=== PATIENT | female | born 1960 | race Caucasian/White ===

== ENCOUNTER → 2022-08-27 11:39 | Outpatient (BNVA) | payer OTHER, SELFPAY | PROVIDERS: PCP Internal Medicine; Visit Provider Physician Assistant | DX: Z13.89 Encounter for screening for other disorder (principal) ==

== ENCOUNTER 2022-10-09 10:48 | Outpatient (REF) | payer OTHER, SELFPAY ==
--- NOTE | ~2022-10-09 | XR_ITS ---
EXAMINATION: XR LUMBOSACRAL SPINE WITH OBLIQUES CLINICAL INFORMATION: Lumbar back pain. COMPARISON: None available. TECHNIQUE: AP, flexion/extension, and lateral views of the lumbar spine. FINDINGS: There are 5 nonrib-bearing lumbar vertebral bodies. Status post instrumented fusion at L4-L5 with bilateral pedicle screws and interconnecting rods an intervertebral disc spacer. Vertebral body heights are maintained. Moderate intervertebral disc space narrowing at L2-L3 and L3-L4. No significant subluxation with flexion and extension. XR/XR lumbar spine 4V min IMPRESSION: Moderate degenerative disc disease L2-L3 and L3-L4. Status post instrumented fusion L4-L5 with intervertebral disc spacer.
== END 2022-10-09 10:49 | disposition home or self-care (01) ==
LOC: HO.HOSX 10:48
PROVIDERS: Visit Provider Physician Assistant
DX: M51.36 Other intervertebral disc degeneration, lumbar region (principal)
CPT/HCPCS: 72110

== ENCOUNTER → 2022-10-23 13:06 | Outpatient (BNVA) | payer OTHER, SELFPAY | PROVIDERS: PCP Internal Medicine; Visit Provider Physician Assistant ==

== ENCOUNTER 2023-07-27 13:33 | Outpatient (AMB) | payer OTHER, SELFPAY ==
--- NOTE | 2023-07-27 13:33 | MHC.OFFWIV ---
Intake Vital Signs 07/27/23 13:42 Height 5 ft 3 in Weight 196 lb BMI 34.7 BP 140/60 H Blood Pressure Location Lt brachial Position Sitting Pulse 91 Pulse Source Pulse Oximeter Temp 98.4 F Temp Source Temporal Artery Scan Pulse Oximetry (%) 96 Oxygen Delivery Method Room Air Intake Visit Reasons: EP ear ache cough green stuff Intake Note: pt is here today for ear ache coughing up green stuff started Wednesday Patient Tobacco Use Status: Former Tobacco user Allergies amoxicillin Allergy (Intermediate, Verified 07/27/23 13:34) Rash penicillin V Allergy (Intermediate, Verified 07/27/23 13:34) Rash Do you need a note to return to daycare/school/sports/work: Yes HPI HPI Comments History of Present Illness Details Patient is a 63-year-old female in today for a sick visit. Patient states that over the past several days she has developed symptoms of headache, ear pain, cough, chest congestion. 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 She has a past medical history significant for diabetes type 2, hypertension, hyperlipidemia, kidney disease. She denies chest pain, dizziness, shortness of breath, numbness, nausea, vomiting, diarrhea. [facility] Medical History (Updated 07/27/23 @ 14:35 by THERESE Cruz) Diabetes type 2, controlled Social History Patient Tobacco Use Status: Former Tobacco user Review of Systems Const Details: Constitutional : No Weight loss, No Fever, Admits Chills, No Fatigue, No Malaise ENT/Mouth : Admits sore throat, No Rhinorrhea, Admits ear pain. Eyes: No Eye Pain, No Swelling, No Redness Cardiovascular : No Chest Pain, No SOB, No Dyspnea on Exertion, No Orthopnea, No Edema, No Palpitations Respiratory : Admits Cough, No Sputum, No Wheezing Gastrointestinal : No Nausea, No Vomiting, No Diarrhea, No Constipation, No abdominal Pain, No Hematochezia, No Melena Genitourinary : No Dysuria, No Urinary Frequency, No Hematuria, Musculoskeletal : No joint pain, No Myalgias, No Joint Swelling Skin : No Skin Lesions, No rash Neuro : No Weakness, No Numbness, No Dizziness, No Headache Psych : No Anxiety/Panic, No Depression Heme/Lymph: No Bruising, No Bleeding,No Lymphadenopathy Endocrine : No Polyuria, No Polydipsia All other systems reviewed and are negative Physical Exam Vital Signs: Last Vital Signs Temp 98.4 F 07/27/23 13:42 Pulse 91 07/27/23 13:42 BP 140/60 H 07/27/23 13:42 Pulse Ox 96 07/27/23 13:42 Oxygen Delivery Method Room Air 07/27/23 13:42 BMI result Body Mass Index 34.7 Vital signs reviewed stable Const Other: Appearance: Alert.? Oriented X3.? No acute distress.? Head: Normocephalic, atraumatic. Eyes: Pupils equal, round and reactive to light.? ENT: Pharynx cobblestoned, Tonsils +2. TM intact, effusion and erythema bilaterally. Neck: Normal inspection.? Neck supple.? CVS: Normal heart rate and rhythm.? Pulses normal.? Respiratory: No respiratory distress.? Breath sounds normal.? Neuro: Oriented X 3.? No motor deficit.? No sensory deficit. CN 2-12 intact Assessment & Plan Assessment & Plan (1) Bilateral otitis media: Comment: Due to allergies to penicillin, and GI reaction to doxycycline, patient will be given Bactrim for otitis media. She has been instructed on the side effects of this medication. She states that she has taken this antibiotic in the past with good effect. Code(s): H66.93 - Otitis media, unspecified, bilateral Qualifiers: Otitis media type: unspecified Qualified Code(s): H66.93 - Otitis media, unspecified, bilateral Plan: Take your medications as prescribed. If you were prescribed antibiotics today, it is important that you take your medication to their entirety, do not skip any doses, do not finish them early. Follow-up with your primary care provider this week. Return to the emergency department with new or worsening symptoms. Such as fevers, chills, chest pain, shortness of breath, nausea, vomiting, dizziness, headache, vision changes, lethargy In case of emergency call 911 Plan Follow-up with PCP. Will call patient with upper respiratory swab results Orders: Orders SARS-CoV2/FLU/RSV Today J06.9 - Acute upper respiratory infection, unspecified Medications: New sulfamethoxazole-trimethoprim 800-160 mg (Bactrim DS) 1 tab PO Q12H 10 tabs 0RF Coding Level of Care Code Est Pt Level 3 (80122) Diagnoses Bilateral otitis media, unspecified otitis media type H66.93 Otitis media type: unspecified Time Spent (min) 26
[2023-07-27 13:42] VITALS: BP 140/60; PULSE 91; TEMP 36.9; O2SAT 96; BMI 34.7
== END 2023-07-27 15:38 | disposition home or self-care (01) ==
PROVIDERS: PCP Internal Medicine; Visit Provider Nurse Practitioner Primary Care
DX: H66.93 Otitis media, unspecified, bilateral (principal)
CPT/HCPCS: 99213

== ENCOUNTER 2023-07-27 16:31 | Outpatient (REF) | payer OTHER, SELFPAY ==
[2023-07-27 17:38] LABS: Influenza A PCR NEGATIVE (Negative); Influenza B PCR NEGATIVE (Negative); Resp Syncy Virus RNA Qual PCR NEGATIVE (Negative); SARS COV2 PCR INHOUSE NEGATIVE (Negative)
== END 2023-07-27 16:32 | disposition home or self-care (01) ==
LOC: HO.HMGCLNP 16:31
PROVIDERS: Visit Provider Nurse Practitioner Primary Care
DX: Z11.52 Encounter for screening for COVID-19 (principal); Z20.822 Contact with and (suspected) exposure to COVID-19; J06.9 Acute upper respiratory infection, unspecified
CPT/HCPCS: 0241U

== ENCOUNTER 2023-09-28 15:26 | Outpatient (AMB) | payer OTHER, SELFPAY ==
[2023-09-28 15:28] VITALS: BP 132/70; PULSE 80; TEMP 36.6; O2SAT 97; BMI 34.7
--- NOTE | 2023-09-28 15:28 | AM.OFFWIN_ITS ---
Intake Vital Signs 09/28/23 15:28 Height 5 ft 3 in Weight 196 lb BMI 34.7 BP 132/70 Blood Pressure Location Rt brachial Position Sitting Pulse 80 Pulse Source Pulse Oximeter Temp 97.8 F Temp Source Temporal Artery Scan Pulse Oximetry (%) 97 Intake Visit Reasons: EP rash on both wrists Intake Note: patient is here rash on both wrists Patient Tobacco Use Status: Former Tobacco user Allergies amoxicillin Allergy (Intermediate, Verified 09/28/23 15:32) Rash penicillin V Allergy (Intermediate, Verified 09/28/23 15:32) Rash Do you need a note to return to daycare/school/sports/work: No HPI HPI Comments History of Present Illness Details 63-year-old female presents today compla ining a prior pruritic rash that is circumferential around both wrists. She denies any new contacts that she can think of including jewelry sleeping room cleaner new watch band new types of perfume. She has no other rash on the rest of her body REPLACED BY [facility] Medical History (Updated 09/28/23 @ 15:48 by HERNAN Mittal) Diabetes type 2, controlled Social History Patient Tobacco Use Status: Former Tobacco user Review of Systems Const All systems reviewed & are unremarkable except as noted in HPI and below Physical Exam Vital Signs: Last Vital Signs Temp 97.8 F 09/28/23 15:28 Pulse 80 09/28/23 15:28 BP 132/70 09/28/23 15:28 Pulse Ox 97 09/28/23 15:28 BMI result Body Mass Index 34.7 Const General: healthy appearing and no acute distress Skin Rashes: rashes noted (Macular papular rash circumferential both wrists) Assessment & Plan Assessment & Plan (1) Contact dermatitis: Code(s): L25.9 - Unspecified contact dermatitis, unspecified cause Plan: The patient refused prednisone due to being diabetic and wanting to keep her sugars in good control. We discussed topical betamethasone to provide anti- inflammatory effect to the rash. Plan See plan Medications: New betamethasone valerate 0.1% 1 appl topical Q12H PRN 15 grams 0RF rash Coding Level of Care Code Est Pt Level 3 (01420) Diagnoses Contact dermatitis L25.9
== END 2023-09-28 16:52 | disposition home or self-care (01) ==
PROVIDERS: PCP Internal Medicine; Visit Provider Physician Assistant Medical
DX: L25.9 Unspecified contact dermatitis, unspecified cause (principal)
CPT/HCPCS: 99213

== ENCOUNTER 2023-11-26 10:23 | Outpatient (AMB) | payer OTHER, SELFPAY ==
--- NOTE | 2023-11-26 10:41 | AM.OFFWIN_ITS ---
Intake Vital Signs 11/26/23 10:42 Height 5 ft 3 in Weight 195 lb BMI 34.5 BP 132/74 Blood Pressure Location Lt brachial Position Sitting Pulse 84 Pulse Source Pulse Oximeter Temp 97.7 F Temp Source Oral Pulse Oximetry (%) 98 Oxygen Delivery Method Room Air Intake Visit Reasons: EP ?UTI Intake Note: pt is here c/o UTI symptoms, urgency, back pain, burning while urinating. Started yesterday Patient Tobacco Use Status: Former Tobacco user Allergies amoxicillin Allergy (Intermediate, Verified 11/26/23 10:41) Rash penicillin V Allergy (Intermediate, Verified 11/26/23 10:41) Rash Do you need a note to return to daycare/school/sports/work: No HPI HPI Comments History of Present Illness Details 63 y/o female patient who presents to [facility] with c/o urinary frequency, Dsyuria and urgency since yesterday. [facility] Medical History (Updated 09/28/23 @ 15:48 by HERNAN Mittal) Diabetes type 2, controlled Social History Patient Tobacco Use Status: Former Tobacco user Review of Systems Const All systems reviewed & are unremarkable except as noted in HPI and below Physical Exam Vital Signs: Last Vital Signs Temp 97.7 F 11/26/23 10:42 Pulse 84 11/26/23 10:42 BP 132/74 11/26/23 10:42 Pulse Ox 98 11/26/23 10:42 Oxygen Delivery Method Room Air 11/26/23 10:42 BMI result Body Mass Index 34.5 Const General: comfortable and no acute distress Nutritional Appearance: obese Orientation/consciousness: patient oriented x3 General: Yes no CVA tenderness Back/Spine/Pelvis Back: no CVA tenderness Neuro General: patient oriented x3, gait normal and moves all extremities Psych Speech and movement: Normal speech and movement present Results AMB Urinalysis, Automated UA Leukoctes 125 Grzegorz/uL Last Edit by Tristin Telles CMA on 11/26/23 10:58 UA Nitrite Negative Last Edit by Tristin Telles CMA on 11/26/23 10:58 UA Urobilinogen 0.2 mg/dL Last Edit by Tristin Telles CMA on 11/26/23 10:58 UA Protein 0 mg/dL Last Edit by Tristin Telles CMA on 11/26/23 10:58 UA pH 6.0 Last Edit by Tristin Telles CMA on 11/26/23 10:58 UA Blood 0 Ibrahima/uL Last Edit by Tristin Telles CMA on 11/26/23 10:58 UA Specific [place] 1.015 Last Edit by Tristin Telles CMA on 11/26/23 10:58 UA Ketone Negative Last Edit by Tristin Telles CMA on 11/26/23 10:58 UA Bilirubin 0 mg/dL Last Edit by Tristin Telles CMA on 11/26/23 10:58 UA Glucose 0 mg/dL Last Edit by Tristin Telles CMA on 11/26/23 10:58 Results Reviewed Results Reviewed: Laboratory Last Values Urine pH (Auto) 6.0 11/26/23 10:56 Specific [place] (Auto) 1.015 11/26/23 10:56 Urine Protein (Auto) 0 mg/dL 11/26/23 10:56 Glucose (UA)(Auto) 0 mg/dL 11/26/23 10:56 Urine Ketones (Auto) Negative 11/26/23 10:56 Urine Blood (Auto) 0 Ibrahima/uL 11/26/23 10:56 Urine Nitrite (Auto) Negative 11/26/23 10:56 Urine Bilirubin (Auto) 0 mg/dL 11/26/23 10:56 Urine Urobilinogen (Auto) 0.2 mg/dL 11/26/23 10:56 Leukocyte Esterase (Auto) 125 Grzegorz/uL 11/26/23 10:56 Assessment & Plan Assessment & Plan (1) Cystitis: Code(s): N30.90 - Cystitis, unspecified without hematuria Plan: Hydrate with plenty of water Orders: Orders AMB Urinalysis Automated Today Z13.9 - Encounter for screening, unspecified Medications: New sulfamethoxazole-trimethoprim 800-160 mg (Bactrim DS) 1 tab PO BID 3 days 6 tabs 0RF N30.90 - Cystitis, unspecified without hematuria Coding Level of Care Code Est Pt Level 3 (36520) Diagnoses Cystitis N30.90 Time Spent (min) 15
[2023-11-26 10:42] VITALS: BP 132/74; PULSE 84; TEMP 36.5; O2SAT 98; BMI 34.5
== END 2023-11-26 11:19 | disposition home or self-care (01) ==
PROVIDERS: PCP Internal Medicine; Visit Provider Nurse Practitioner Family
DX: N30.90 Cystitis, unspecified without hematuria (principal)
CPT/HCPCS: 81003; 99213

== ENCOUNTER 2024-03-13 09:17 | Emergency (ER) | payer OTHER, SELFPAY ==
--- NOTE | ~2024-03-13 | XR_ITS ---
EXAMINATION: XR HAND/WRIST, RIGHT CLINICAL INFORMATION: Fall on outstretched hand, pain in hand and wrist. COMPARISON: None available. TECHNIQUE: Four views of the right hand and wrist. FINDINGS: Severe diffuse demineralization. Vascular calcifications. Ulnar minus variance. Narrowing of the radiocarpal space. Moderate degenerative changes in the first carpometacarpal joint and triscaphe joint with joint space narrowing and hypertrophic change. Mild degenerative changes at multiple IP joints. There is a markedly comminuted, displaced fracture of the distal left of the third digit with adjacent soft tissue swelling. Fracture appears to extend to the articular surface. XR/XR hand wrist RT IMPRESSION: 1. Markedly comminuted, displaced fracture of the distal left of the third digit with adjacent soft tissue swelling. Fracture appears to extend to the articular surface. 2. Moderate degenerative changes in the first carpometacarpal joint and triscaphe joint. This study was presented today March 13, 2024 for interpretation. Stat results provided at this time as requested by referring provider. Electronically signed by: Clarissa Antunez MD 03/13/2024 12:42 PM EDT RP
[2024-03-13 09:21] VITALS: BP 180/77; PULSE 77; RESP 16; TEMP 36.5; O2SAT 99; BMI 35.5
--- NOTE | 2024-03-13 11:09 | ED_ITS ---
HPI - Extremity Problem General Chief complaint: Extremity Injury, Upper Stated complaint: R hand injury Time Seen by Provider: 03/13/24 11:08 Source: patient Mode of arrival: ambulatory Limitations: no limitations History of Present Illness ED Provider: kevin GIPSON Narrative: Patient is a 63 yo female with PMH DM II, lumbar DDD, here with right wrist pain and swelling s/p fall yesterday. Reports yesterday she had stepped wrongly into a crack and it caused her to fall, she landed on her extended right hand/wrist area. She self wrapped in LONG wrapping and treated with tylenol. States when she woke this am it was swollen and she wanted to double check if anything was broken. Denies numbness or tingling, reports good ROM except some limitation due to inflammation- Is able to wiggle my fingers . Has been using RICE treatment method thus far. Denies head strike, denies loss of consciousness. Denies neck or back pain. Not anticoagulated. MD Complaint: extremity pain and extremity swelling Onset (ago): day(s) Location: right Associated symptoms: denies other symptoms Related Data Home Medications ?Medication ?Instructions ?Recorded ?Confirmed atorvastatin 20 mg tablet 20 mg PO DAILY 02/20/22 diltiazem HCl 180 mg 180 mg PO DAILY 02/20/22 capsule,extended release 24 hr furosemide 20 mg tablet 20 mg PO DAILY 02/20/22 hydralazine 50 mg tablet 50 mg PO BID 02/20/22 insulin lispro 100 unit/mL See Rx Instructions subcut 02/20/22 subcutaneous pen (Humalog KwikPen USEASDIRECTD (U-100) Insulin) levothyroxine 75 mcg tablet See Rx Instructions PO DAILY 02/20/22 nystatin-triamcinolone 100,000 1 appl topical TID 02/20/22 unit/gram-0.1 % topical ointment olmesartan 40 mg tablet 40 mg PO DAILY 02/20/22 Previous Rx's ?Medication ?Instructions ?Recorded betamethasone valerate 0.1 % 1 appl topical Q12H PRN rash #15 09/28/23 topical cream grams sulfamethoxazole 800 1 tab PO BID 3 days #6 tabs 11/26/23 mg-trimethoprim 160 mg tablet (Bactrim DS) Allergies Allergy/AdvReac Type Severity Reaction Status Date / Time amoxicillin Allergy Intermediate Rash Verified 03/13/24 09:24 penicillin V Allergy Intermediate Rash Verified 03/13/24 09:24 Review of Systems Review of Systems: As per HPI Yes all other systems are reviewed and are negative Constitutional: Constitutional: Reports as per HPI PENDING SALE TO [facility] Past Medical History Medical History (Updated 03/13/24 @ 13:13 by Zully Wasserman NP) Diabetes type 2, controlled Social History Social History Patient Tobacco Use Status: Former Tobacco user Smoked in Last 30 Days: No Advance Directives: No Advance Directives Information Provided: Yes Do you have a plan to hurt others: No Plan Physical Exam Vital Signs: Vital Signs: Last Vital Signs Temp 97.7 F 03/13/24 09:21 Pulse 77 03/13/24 09:21 Resp 16 03/13/24 09:21 BP 180/77 H 03/13/24 09:21 Pulse Ox 99 03/13/24 09:21 O2 Del Method Room Air 03/13/24 09:21 BMI result Body Mass Index 35.5 Const: General: cooperative, healthy appearing and no acute distress Orientation/consciousness: oriented to person, oriented to place, oriented to time and patient oriented x3 Limitations: no limitations HEENT: Head: Yes normocephalic and Yes atraumatic Ears: external ears normal General nose exam: Normal external nose present Face and sinus: Yes face symmetric Mouth: oropharynx normal and moist mucous membranes Throat: Yes uvula midline Eyes: Pupils: Equal, round and reactive pupils present Neck: Neck: Yes normal visual inspection and Yes supple Resp: Effort & Inspection: normal respiratory effort and able to speak in complete sentences Auscultation: clear to auscultation bilaterally Cardio: Rate: regular rate Rhythm: regular rhythm Heart sounds: S1 normal heart sound present and S2 normal heart sound present GI: Palpation (GI): Soft to palpation and nontender Auscultation: normoactive bowel sounds : General: Yes no CVA tenderness Back/Spine/Pelvis: Back: no CVA tenderness Skin: General skin exam: elasticity normal and turgor normal Trauma: no lacerations or abrasions Neuro: General: oriented to person, oriented to place, oriented to time, patient oriented x3, moves all extremities, no focal motor deficits and CN's II- XI intact bilaterally Cranial nerves: Yes Equal, round and reactive pupils present Cognition (Neuro): normal cognition Extrem: General: Yes full ROM, Yes no pedal edema and Yes no calf tenderness Right upper extremity: normal capillary refill, edema and wrist Left upper extremity: normal to inspection, full ROM, normal capillary refill and hand Details: normal capillary refill, neuromotor exam normal, neurosensory exam normal, tendon exam normal, normal ROM of fingers and swelling Location: of the dorsal hand, of the 2nd digit, of the 3rd digit, of the 4th digit and of the 5th digit Psych: Mental Status: mental status grossly normal Affect: normal affect Thought process: Normal thought process present Medical Decision Making Medical Decision Making MDM Narrative: Patient is a 63 yo female with PMH DM II, lumbar DDD, here with right wrist pain and swelling s/p fall yesterday. On exam patient is awake, A+Ox3, VS WNL, afebrile, normal neurological exam without focal deficits, physical exam findings as above. Given reported symptoms and physical exam findings, initial differential includes fracture, nerve injury, muscle or tendon strain, arthritis. X-ray notable for comminuted, displaced fracture of distal right 3rd digit. My interpretation is in agreement with the radiologist's interpretation. Patient has normal flexion of all fingers. Placed in finger splint, will refer to ortho for follow up, normal capillary refill distal prior to and after application of splint. Advised ice, tylenol/ibuprofen, no lifting with affected hand. Return precautions discussed. Patient verbalized understanding of and agreement with plan. Differential Diagnosis Differential Diagnoses: The differential diagnosis associated with the presentation includes fracture, nerve injury, muscle or tendon strain, arthritis Independent Interpretation I performed an independent interpretation of an: Plain X-Ray Interpretation: X-ray notable for comminuted, displaced fracture of distal right 3rd digit. Radiology Impression Discussion of test interpretation with radiology: I have reviewed the radiologist's reading. Radiologist Impression: XR/XR hand wrist RT IMPRESSION: 1. Markedly comminuted, displaced fracture of the distal left of the third digit with adjacent soft tissue swelling. Fracture appears to extend to the articular surface. 2. Moderate degenerative changes in the first carpometacarpal joint and triscaphe joint. This study was presented today March 13, 2024 for interpretation. Stat results provided at this time as requested by referring provider. External Record Review External record reviewed: Inpatient record, Office record and Outpatient record Procedures Orthopedic Splinting/Casting Injury #1: Side: right Upper Extremity Injury Location: finger Upper Extremity Immobilizer: finger (other) and Long wrap Discharge Plan Discharge Clinical Impression: Finger fracture, right Patient Disposition: Home, Self-Care Instructions: Finger Fracture (ED) Additional Instructions: You have been evaluated in the emergency department today for hand pain. Your evaluation showed a fracture of your right 3rd (middle) finger. We have placed your finger in a splint today, avoid getting the splint wet. Please rest, ice, and elevate your hand to help it heal. Use use Tylenol or ibuprofen per package directions every 6 hours as needed for pain. If necessary, you can alternate these medications and take one medication every 3 hours. For instance, at noon take ibuprofen, then at 3:00 p.m. take Tylenol, then at 6:00 p.m. take ibuprofen. Please follow-up with the orthopedic office within 1 week. Return to the emergency department if you experience worsening pain, numbness, tingling, change of color in your fingers/hand, or any other concerning symptoms. Prescriptions: No Action atorvastatin 20 mg tablet 20 mg PO DAILY hydralazine 50 mg tablet 50 mg PO BID olmesartan 40 mg tablet 40 mg PO DAILY levothyroxine 75 mcg tablet See Rx Instructions PO DAILY Rx Instructions: 6 days per week orally daily; diltiazem HCl 180 mg capsule,extended release 24hr 180 mg PO DAILY furosemide 20 mg tablet 20 mg PO DAILY nystatin-triamcinolone 100,000-0.1 unit/gram-% ointment 1 appl topical TID insulin lispro [Humalog KwikPen Insulin] 100 unit/mL insulin pen See Rx Instructions subcut USEASDIRECTD Rx Instructions: sliding scale before meals subcutaneously use as directed; betamethasone valerate 0.1 % cream 1 appl topical Q12H PRN (Reason: rash) Qty: 15 0RF sulfamethoxazole-trimethoprim [Bactrim DS] 800-160 mg tablet 1 tab PO BID 3 Days Qty: 6 0RF Referrals: Tiffanie Choudhury MD [Physician] - 1 week ( XR/XR hand wrist RT IMPRESSION: 1. Markedly comminuted, displaced fracture of the distal left of the third digit with adjacent soft tissue swelling. Fracture appears to extend to the articular surface. 2. Moderate degenerative changes in the first carpometacarpal joint and triscaphe joint.) Stand Alone Forms: Work/School Release Print Language: Grenadian
[2024-03-13 13:41] VITALS: BP 180/77; PULSE 77; RESP 16; TEMP 36.5; O2SAT 99
== END 2024-03-13 13:41 | disposition home or self-care (01) ==
PROVIDERS: Emergency Provider Emergency Medicine; PCP Internal Medicine
DX: S62.632A Displaced fracture of distal phalanx of right middle finger, initial encounter for closed fracture (principal); W19.XXXA Unspecified fall, initial encounter; Y93.9 Activity, unspecified; Y92.9 Unspecified place or not applicable; Y99.9 Unspecified external cause status; M79.641 Pain in right hand
CPT/HCPCS: 73110; 73130; 99283; 99284

== ENCOUNTER 2024-03-14 10:48 | Outpatient (AMB) | payer OTHER, SELFPAY ==
--- NOTE | 2024-03-14 11:03 | A.OFFVIS_ITS ---
Intake Visit Reasons: FC- Finger fracture, right Intake Note: Deana is a 63 year old left hand dominant female who presents to the office today for a FC visit for a right hand middle finger fracture. Pt states on 03/12/24 she tripped and braced herself with her hands when she fell. Pt states she has minimal pain. Pt states she isn't able to really move her finger but states if she bumps her finger that is when she gets the pain. Pt states she has had trigger finger surgeries in the past but doesn't believe it was that finger. Pt was placed in a finger splint and has been wearing it since the ER visit. Allergies amoxicillin Allergy (Intermediate, Verified 03/14/24 11:03) Rash penicillin V Allergy (Intermediate, Verified 03/14/24 11:03) Rash HPI HPI FC- Finger fracture, right: Details: The patient is a 63-year-old woman who fell onto her outstretched right hand on 03/12/2024 sustaining an injury to her right middle finger. She says it is not very painful now, and hurts less when she moves it. [facility] Medical History (Updated 03/16/24 @ 15:51 by Tiffanie Choudhury MD) Diabetes type 2, controlled Social History Patient Tobacco Use Status: Former Tobacco user Physical Exam Const General: cooperative, healthy appearing and no acute distress Orientation/consciousness: oriented to person and oriented to place HEENT Head: Yes normocephalic and Yes atraumatic Eyes EOM: EOMs intact bilaterally Resp Effort & Inspection: normal respiratory effort and able to speak in complete sentences Cardio Jugular venous distension: no JVD Skin General skin exam: turgor normal Rashes: no rashes Neuro General: oriented to person and oriented to place Extrem Other: Evaluation of right Upper Extremity: Neuro: Median, ulnar, radial nerves motor and sensory intact. Vascular: Cap refill brisk. ROM: Can bring fingers closed to a fist and back out to full or nearly full extension. Smooth and painless right wrist ROM Mild swelling and some resolving ecchymosis of the distal aspect of the right middle finger. Mild tenderness over the D IP joint and distal phalanx of the right middle finger. The fracture fragment is only slightly palpable on the volar aspect of the middle finger just distal to the D IP flexion crease. She has good alignment of the distal phalanx in the D IP joint with only a minimal extensor lag. She is unable to actively flex at the D IP joint, limited by pain. After work on range of motion exercises for the MCP and PIP joints she was then able to actively take the MCP and PIP joints through full range of motion. Mildly decreased sensation to the tip of the middle finger. No lacerations or evidence of open injury. Radiographs: Radiographs three views of the right hand taken on 03/14/2024 were reviewed by me in clinic. They show to fractures of the right middle finger distal phalanx. One is a transverse fracture through the body that is minimally displaced. The 2nd is a fracture off of the volar cortex of the base of the distal phalanx at the FDP attachment. This is displaced away from the body of the distal phalanx but is not significantly displaced proximally. Fracture fragment is certainly sitting distal to the A4 arlen. Psych Appearance: grossly normal Affect: normal affect Attitude: cooperative Office Procedures AMB Fracture Care Details: Distal phalanx fracture care Fracture Billing Code: Fracture Billing Code Assessment & Plan Assessment & Plan (1) Fracture of distal phalanx of right middle finger: Code(s): S62.632A - Displaced fracture of distal phalanx of right middle finger, initial encounter for closed fracture Category: Medical Plan Assessment and plan: 1. Right middle finger transverse fracture through the distal phalanx body, non displaced 2. Right middle finger distal phalanx F flexor digitorum longus insertion avulsion fracture, from the volar base With displacement Fragment kept distal to the A4 arlen I educated the patient about this injury We did discuss operative and non operative treatment options including operative fixation of both the distal phalanx body fracture and the fracture fragment that served as the insertion for the FDP tendon. She was interested in non operative treatment if possible. She actually has very good range of motion of the other digits end of the MCP and PIP joints. The transverse body fracture is not displaced at this time and has satisfactory clinical alignment. I did explain to her that she likely would not have much if any flexion at the D IP joint if we did not fix it. However I also advised her that often times who will perform an arthrodesis of this joint whereby people then have no active flexion at this joint and they do well. Weighing all of this, she felt that she wanted to pursue non operative treatment. This is not unreasonable. We fitted her with a volar aluminum splint to support the D IP joint in the distal phalanx but allow for PIP motion. She will wear this most of the time but may remove it for showering. She is going to continue to work on MCP and PIP joint motion. We will see her back in about a month to see how she is doing, with pre clinic radiographs. Orders: Orders XR hand RT min 3V 03/14/24 M79.641 - Pain in right hand Coding Level of Care Code New Pt Level 3 (11832) Diagnoses Fracture of distal phalanx of right middle finger S62.632A CPT Codes Fracture Care - Fracture Billing Code: Fracture Billing Code ([id number])
== END 2024-03-14 12:24 | disposition home or self-care (01) ==
PROVIDERS: PCP Internal Medicine; Visit Provider Orthopaedic Surgery
DX: S62.632A Displaced fracture of distal phalanx of right middle finger, initial encounter for closed fracture (principal); W19.XXXA Unspecified fall, initial encounter
CPT/HCPCS: 99203

== ENCOUNTER 2024-03-14 12:32 | Outpatient (REF) | payer OTHER, SELFPAY | END 2024-03-14 12:33 | disposition home or self-care (01) | LOC: HO.HOSX 12:32 | DX: M79.641 Pain in right hand (principal) | CPT/HCPCS: 73130 ==

== ENCOUNTER 2024-04-11 10:42 | Outpatient (REF) | payer OTHER, SELFPAY | END 2024-04-11 10:43 | disposition home or self-care (01) | LOC: HO.HOSX 10:42 | DX: M79.641 Pain in right hand (principal) | CPT/HCPCS: 73130 ==

== ENCOUNTER 2024-04-11 10:49 | Outpatient (AMB) | payer OTHER, SELFPAY ==
--- NOTE | 2024-04-11 11:13 | MHC.OFFVIS ---
Vital Signs 04/11/24 11:15 Height 5 ft 3 in Weight 200 lb BMI 35.4 Handedness Left Intake Visit Reasons: FC- Finger fracture, right w/ xray Intake Note: Deana is a 63 year old left hand dominant female who presents today as a new patient for a fracture care visit of her right middle finger fracture s/p fall DOI: 03/12/2024. Patient reports she stepped into a crack on the ground the wrong way which caused her to fall. She fell with both her hands in front of her in attempt to stop her fall. She reports she has numbness in her right middle finger and her ring finger feels a bit swollen still however she says the ring finger is feeling better. She is unable to make a full closed fist since the injury and reports soreness when she tries. She feels the pain has not been strong enough to need ibuprofen or Tylenol. Allergies amoxicillin Allergy (Intermediate, Verified 04/11/24 11:16) Rash penicillin V Allergy (Intermediate, Verified 04/11/24 11:16) Rash HPI HPI FC- Finger fracture, right w/ xray: Details: Patient is a 63-year-old female who presents for follow-up evaluation status post right middle finger distal phalanx fracture status post fall, date of injury 03/12/2024. Today, the patient reports that she is feeling very well, and is experiencing no pain in the right middle finger at this time. However, the patient does state she is continuing to experience limited range of motion in the DIP joint of the right middle finger, but states that she knew that this was a risk when she was previously evaluated by Dr. Choudhury. The patient does state that she remains wholly uninterested in any surgical intervention. Patient states that she has not been wearing the splint much over the last 2 weeks. The patient does report that she does have some numbness in the distal aspect of the right middle finger, but has normal sensation at this time and in all other digits of the right hand. No other acute complaints or concerns at this time. [facility] Medical History (Updated 03/16/24 @ 15:51 by Tiffanie Choudhury MD) Diabetes type 2, controlled Social History (Updated 04/11/24 @ 11:16 by HARVEY Bañuelos) Patient Tobacco Use Status: Former Tobacco user Current occupational status: employed Current occupation: left handed/ Business Service Rep @ [employer] Review of Systems Const All systems reviewed & are unremarkable except as noted in HPI and below Physical Exam Vital Signs: BMI result Body Mass Index 35.4 Const General: cooperative, healthy appearing and no acute distress Orientation/consciousness: oriented to person and oriented to place HEENT Head: Yes normocephalic and Yes atraumatic Eyes EOM: EOMs intact bilaterally Resp Effort & Inspection: normal respiratory effort and able to speak in complete sentences Cardio Jugular venous distension: no JVD Skin General skin exam: turgor normal Rashes: no rashes Neuro General: oriented to person and oriented to place Extrem Other: Evaluation of right Upper Extremity: Neuro: Median, ulnar, radial nerves motor and sensory intact. Vascular: Cap refill brisk. ROM: Can bring fingers closed to a fist and back out to full or nearly full extension. Smooth and painless right wrist ROM Mild swelling and some resolving ecchymosis of the distal aspect of the right middle finger. No tenderness over the D IP joint and distal phalanx of the right middle finger. The fracture fragment is only slightly palpable on the volar aspect of the middle finger just distal to the D IP flexion crease. She has good alignment of the distal phalanx in the D IP joint with only a minimal extensor lag. She is able to minimally actively flex at the DIP joint of the right middle finger, but states that this is no longer due to pain After work on range of motion exercises for the MCP and PIP joints she was then able to actively take the MCP and PIP joints through full range of motion. Mildly decreased sensation to the tip of the middle finger. No lacerations or evidence of open injury. Psych Appearance: grossly normal Affect: normal affect Attitude: cooperative Results Reviewed Results Reviewed: X-rays obtained in the office today and independently reviewed by me, Dean Bucio PA-C, demonstrate displaced, comminuted fracture of the base of the distal phalanx of the right middle finger. Largely unchanged from previous x-rays. Assessment & Plan Assessment & Plan (1) Fracture of distal phalanx of right middle finger: Code(s): S62.632A - Displaced fracture of distal phalanx of right middle finger, initial encounter for closed fracture Category: Medical Plan Assessment and plan: 1. Right middle finger transverse fracture through the distal phalanx body, non displaced 2. Right middle finger distal phalanx F flexor digitorum longus insertion avulsion fracture, from the volar base With displacement Fragment kept distal to the A4 arlen I educated the patient about this injury Patient states that she is still holding uninterested in any potential surgical intervention at this time Patient states that she is completely pain-free, but that she does notice that she has reduced range of motion Patient is educated that this may never come back due to the location of her fracture, and if it does it may be in a limited capacity Patient states understanding of this Patient is educated that she should continue to wear the splint with daytime activities, but should remove the splint while at home to work on range of motion, as well as for bathing and sleeping. Patient is amenable to this plan Patient will follow-up in 4-6 weeks with repeat x-rays for reassessment, sooner with any acute concerns Orders: Orders XR hand RT min 3V Today M79.641 - Pain in right hand Coding Level of Care Code Global (13394) Diagnoses Fracture of distal phalanx of right middle finger S62.632A
[2024-04-11 11:15] VITALS: BMI 35.4
== END 2024-04-11 11:37 | disposition home or self-care (01) ==
PROVIDERS: PCP Internal Medicine
DX: S62.632A Displaced fracture of distal phalanx of right middle finger, initial encounter for closed fracture (principal)
CPT/HCPCS: 99213

== ENCOUNTER 2024-05-26 08:12 | Outpatient (REF) | payer OTHER, SELFPAY ==
--- NOTE | ~2024-05-26 | XR_ITS ---
EXAMINATION: XR HAND 3 OR MORE VIEWS RIGHT HISTORY: M79.641 - Pain in right hand COMPARISON: Comparison is made with the prior examination dated 04/11/2024. FINDINGS: Three views of the right hand are submitted. The bones are osteopenic. Again seen is a comminuted intra-articular fracture of the base of the distal phalanx of the middle finger. Position and alignment of the fracture fragments are unchanged. There is mild narrowing of the DIP joints. The soft tissues are unremarkable. XR/XR hand RT min 3V IMPRESSION: Comminuted intra-articular fracture of the base of the distal phalanx of the 3rd finger without significant change. Electronically signed by: Sam Griffin MD 05/31/2024 10:36 AM OSKAR
== END 2024-05-26 08:13 | disposition home or self-care (01) ==
LOC: HO.HOSX 08:12
DX: M79.641 Pain in right hand (principal)
CPT/HCPCS: 73130

== ENCOUNTER 2024-05-26 09:59 | Outpatient (AMB) | payer OTHER, SELFPAY ==
--- NOTE | 2024-05-26 10:09 | A.OFFVIS_ITS ---
Intake Visit Reasons: OV: FX of right 3rd digit DOI: 03/12/24 Intake Note: Deana is a 63 year old left hand dominant female who presents today for a follow up visit of her fracture of distal phalanx of right middle finger s/p fall DOI: 03/12/2024. Patient reports no pain today. She mentions that she is still having some numbness since the injury. Allergies amoxicillin Allergy (Intermediate, Verified 05/26/24 10:12) Rash penicillin V Allergy (Intermediate, Verified 05/26/24 10:12) Rash HPI HPI OV: FX of right 3rd digit DOI: 03/12/24: Details: Patient is a 64-year-old female who presents for follow-up evaluation of fracture of the distal phalanx of the right middle finger, date of injury 03/12/2024. Today, the patient reports that she does not experience any pain in the right hand, but she still does notice a limited ability to flex at the DIP joint and some tingling in the right hand. Patient once again states she is completely uninterested in any operative intervention at this time. No other acute complaints or concerns at this time. [facility] Medical History (Updated 03/16/24 @ 15:51 by Tiffanie Choudhury MD) Diabetes type 2, controlled Social History (Updated 04/11/24 @ 11:16 by HARVEY Bañuelos) Patient Tobacco Use Status: Former Tobacco user Current occupational status: employed Current occupation: left handed/ Business Service Rep @ [employer] Review of Systems Const All systems reviewed & are unremarkable except as noted in HPI and below Physical Exam Const General: cooperative, healthy appearing and no acute distress Orientation/consciousness: oriented to person and oriented to place HEENT Head: Yes normocephalic and Yes atraumatic Eyes EOM: EOMs intact bilaterally Resp Effort & Inspection: normal respiratory effort and able to speak in complete sentences Cardio Jugular venous distension: no JVD Skin General skin exam: turgor normal Rashes: no rashes Neuro General: oriented to person and oriented to place Extrem Other: Evaluation of right Upper Extremity: Neuro: Median, ulnar, radial nerves motor and sensory intact. Vascular: Cap refill brisk. ROM: Can bring fingers closed to a fist and back out to full or nearly full extension. Smooth and painless right wrist ROM No swelling or ecchymosis of the distal aspect of the right middle finger. No tenderness over the D IP joint and distal phalanx of the right middle finger. She has good alignment of the distal phalanx in the D IP joint with only a minimal extensor lag. She is able to flex to approximately 30-40 degrees at the DIP joint of the right middle finger, but states that this is no longer due to pain After work on range of motion exercises for the MCP and PIP joints she was then able to actively take the MCP and PIP joints through full range of motion. Mildly decreased sensation to the tip of the middle finger. No lacerations or evidence of open injury. Psych Appearance: grossly normal Affect: normal affect Attitude: cooperative Results Reviewed Results Reviewed: X-rays obtained in the office today and independently reviewed by me, Dean Bucio PA-C, demonstrate displaced, comminuted fracture of the base of the distal phalanx of the right middle finger. Injury to volar distal phalanx of right middle finger appears to be progressing towards nonunion. Assessment & Plan Assessment & Plan (1) Fracture of distal phalanx of right middle finger: Code(s): S62.632A - Displaced fracture of distal phalanx of right middle finger, initial encounter for closed fracture Category: Medical Plan 1. Fracture of distal phalanx of right middle finger Date of injury 03/12/2024 Patient appears to be recovering fairly well from her injury Patient is educated about the typical recovery course At this time, patient was informed that it is looking like her fracture may progress to a nonunion, but given the fact that she has no pain in her remains entirely uninterested in any surgical intervention, there is nothing further to do at this time Patient expresses that the tingling in slightly diminished sensation in the right middle finger does not bother her enough to the point where she feels there is any further intervention indicated, and she would like to wait and see if this heals over time Patient will follow-up as needed with any acute concerns Orders: Orders XR hand RT min 3V Today M79.641 - Pain in right hand Coding Level of Care Code Est Pt Level 3 (03737) Diagnoses Fracture of distal phalanx of right middle finger S62.632A
== END 2024-05-26 10:24 | disposition home or self-care (01) ==
PROVIDERS: PCP Internal Medicine
DX: S62.632A Displaced fracture of distal phalanx of right middle finger, initial encounter for closed fracture (principal)
CPT/HCPCS: 99213

== ENCOUNTER → 2024-05-26 10:03 | Outpatient (BNV) | payer OTHER, SELFPAY | PROVIDERS: Visit Provider Radiology Diagnostic Radiology | DX: S62.632D Displaced fracture of distal phalanx of right middle finger, subsequent encounter for fracture with routine healing (principal) | CPT/HCPCS: 73130 ==

== ENCOUNTER 2024-11-15 10:14 | Outpatient (REF) | payer OTHER, SELFPAY ==
--- NOTE | ~2024-11-15 | XR_ITS ---
EXAMINATION: XR CHEST 2 VIEWS HISTORY: R05.9 - Cough, unspecified COMPARISON: There are no prior studies available for comparison. FINDINGS: PA and lateral views of the chest are submitted. There is linear subsegmental atelectasis versus scarring in the left lower lobe. The lungs are otherwise clear. There is no pleural effusion, pneumothorax, or pulmonary vascular congestion. The heart is normal in size. There is mild degenerative disc disease of the spine. XR/XR chest 2V IMPRESSION: Linear subsegmental atelectasis versus scarring in the left lower lobe. Electronically signed by: Sam Griffin MD 11/15/2024 12:14 PM EDT
== END 2024-11-15 10:15 | disposition home or self-care (01) ==
LOC: HO.HMGCX 10:14
PROVIDERS: PCP Internal Medicine; Visit Provider Physician Assistant
DX: J22 Unspecified acute lower respiratory infection (principal)
CPT/HCPCS: 71046

== ENCOUNTER 2024-11-15 10:14 | Outpatient (AMB) | payer OTHER, SELFPAY ==
[2024-11-15 10:28] VITALS: BP 134/52; PULSE 78; TEMP 36.8; O2SAT 97; BMI 36.5
--- NOTE | 2024-11-15 10:28 | AM.OFFWIN_ITS ---
Intake Vital Signs 11/15/24 10:28 Height 5 ft 3 in Weight 206 lb 2 oz BMI 36.5 BP 134/52 L Blood Pressure Location Rt brachial Position Sitting Pulse 78 Temp 98.2 F Temp Source Oral Pulse Oximetry (%) 97 Oxygen Delivery Method Room Air Intake Visit Reasons: EP congestion, cough Patient Tobacco Use Status: Former Tobacco user Allergies amoxicillin Allergy (Intermediate, Verified 11/15/24 10:33) Rash penicillin V Allergy (Intermediate, Verified 11/15/24 10:33) Rash Do you need a note to return to daycare/school/sports/work: Yes HPI HPI Comments History of Present Illness Details History - The patient is a 64-year-old female pr esenting with a lingering cough and congestion. - The cough began with a scratchy throat last week, following her 's illness. - The cough is occasionally productive a nd is accompanied by nasal congestion and rhinorrhea. - She experiences shortness of breath wi th exertion and a sensation of wheezing. - There is no history of fever, and her has recovered from a similar illness after 3 days. - She reports ear pressure but denies si gnificant ear pain. - She has a history of sinus infections and experiences occasional headaches. - She has been managing symptoms with co ugh syrup, saltwater gargles, lemon, robbie - She has not used nasal sprays and has no diagnosed history of asthma or COPD. - She quit smoking 36 years ago after sm oking for approximately 15 years. - She has diabetes mellitus and kidney issues . Physical Exam General: Cooperative, healthy appearing, comfortable and no acute distress Orientation/consciousness: Patient oriented x3 Limitations: No limitations Head: Normal to inspection Ears: Hearing grossly normal bilaterally, external ears normal and TM's normal bilaterally Nose: Normal external nose present, Normal nares present and nasal discharge present Face and sinus: Normal facial exam and Yes sinuses nontender Mouth: Normal oral and palatal mucosa present and moist mucous membranes Throat: Yes tonsils normal, Yes uvula midline. Posterior oropharynx erythema, no exudates Eyes: Appearance normal, both eyes and all related structures Neck: Normal visual inspection, full ROM Respiratory: Clear to auscultation on left, rhonchi in RUL and RLL. Normal respiratory effort, able to speak in complete sentences, no respiratory distress, not tachypneic, no tripod positioning and no use of accessory muscles Cardiovascular: Regular rate and rhythm. 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 Review of Systems Const All systems reviewed & are unremarkable except as noted in HPI and below Physical Exam Vital Signs: Last Vital Signs Temp 98.2 F 11/15/24 10:28 Pulse 78 11/15/24 10:28 BP 134/52 L 11/15/24 10:28 Pulse Ox 97 11/15/24 10:28 Oxygen Delivery Method Room Air 11/15/24 10:28 BMI result Body Mass Index 36.5 Assessment & Plan Assessment & Plan (1) Lower respiratory infection (e.g., bronchitis, pneumonia, pneumonitis, pulmonitis): Code(s): J22 - Unspecified acute lower respiratory infection Plan: - VSS, pt well appearing and PE remarkable for right sided rhonchi. - A chest x-ray is ordered to rule out pneumonia due to abnormal lung sounds. - A prescription for a Z-Wally is provided to address potential bacterial infection. - An inhaler with a spacer is prescribed to alleviate shortness of breath and wheezing. - The patient is advised to use a decongestant and increase fluid intake to manage congestion. - The patient is advised to rest and is provided with a work excuse for today and possibly tomorrow. Patient was informed and verbally consented to the use of an ambient scribe for clinic note documentation during this visit Orders: Orders XR chest 2V Today R05.9 - Cough, unspecified Medications: New albuterol sulfate 90 mcg/actuation 2 puffs inhalation Q6H PRN 8.5 grams 0RF shortness of breath or wheezing or cough inhalational spacing device (BreatheRite MDI Spacer) As directed 1 ea 0RF azithromycin For 250 mg dose pack: take 500 mg today (day 1), then 250 mg for 4 days (days 2-5) PO 6 tabs 0RF Coding Level of Care Code New Pt Level 4 (39195) Diagnoses Lower respiratory infection (e.g., bronchitis, pneumonia, pneumonitis, pulmonitis) J22
--- OUTSIDE RECORDS SUMMARY | 2024-11-15 11:52 | XMS_ITS | Clinical Summary ---
Author Organization [facility] [address] [place] [address] [place] [phone] Phone Care Team Providers Care Rn Cvor Name Role Phone Asa Bro MD Primary Care Provider [phone] Allergies Active Allergy Reactions Criticality Noted Date Comments Amoxicillin Trihydrate 03/25/2005 Rash, does not recall if itchy More than ten years ago Penicillin G Potassium 03/25/2005 Medications cetirizine (ZyrTEC) 10 mg tablet Take by mouth. - Oral Active dilTIAZem CD (CARDIZEM CD) 180 mg 24 hr capsule Take 1 Capsule by mouth daily. 10/29/19 21 Active estradioL (ESTRACE) 0.01 % (0.1 mg/gram) vaginal cream Apply 0.5 g nightly for two weeks, then MWF 12/09/19 24 Active hydrALAZINE (APRESOLINE) 50 mg tablet Take 1 tablet (50 mg total) by mouth 4 (four) times a day. Per Spotter 04/12/20 23 Active spironolactone (ALDACTONE) 25 mg tablet Take 1 Tablet by mouth every morning. 03/09/20 22 Active blood sugar diagnostic (Contour Next Test Strips) test stripIndications :Type 1 diabetes mellitus without complications (CMS/HCC V24, CMS/HCC V28) USE TO TEST BLOOD SUGAR 5 TIMES DAILY. 450 strip 1 06/06/19 25 Active Lantus Solostar U-100 Insulin 100 unit/mL (3 mL) injection pen INJECT SUBCUTANEOUSLY 26 UNITS DAILY 30 mL 3 06/07/19 25 Active HumaLOG KwikPen Insulin 100 unit/mL injection pen INJECT SUBCUTANEOUSLY 3 TIMES DAILY WITH MEALS PER SCALE:125-150:2 U,151-200:4 U,201-250:6 U,251-300:8 U,301-350:10 U,351-400:12 U 45 mL 3 07/07/19 25 Active levothyroxine (SYNTHROID, LEVOTHROID) 75 mcg tablet Take 1 tablet (75 mcg total) by mouth 1 (one) time each day. 90 tablet 2 08/15/19 25 Active olmesartan (BENICAR) 40 mg tablet Take 1 tablet (40 mg total) by mouth 1 (one) time each day. at bedtime. 90 tablet 2 08/15/19 25 Active atorvastatin (LIPITOR) 20 mg tablet Take 1 tablet (20 mg total) by mouth 1 (one) time each day. 90 tablet 2 08/15/19 25 Active furosemide (LASIX) 20 mg tablet Take 1 tablet (20 mg total) by mouth 1 (one) time each day. 90 tablet 2 08/15/19 25 Active BD Ultra-Fine Fidelina Pen Needle 32 gauge x 5/32 needle INJECT SUBCUTANEOUSLY 5 TIMES DAILY 450 each 09/26/19 25 Active nystatin-triamci nolone (MYCOLOG II) ointment APPLY A THIN LAYER TO AFFECTED AREA wtice weekly 30 g 2 10/27/19 25 Active nystatin-triamci nolone (MYCOLOG II) ointment APPLY A THIN LAYER TO AFFECTED AREA NIGHTLY 11/28/19 21 025 Discontin ued(Reord er) Active Problems Problem Noted Date Diagnosed Date Recurrent UTI 12/09/2023 Lichen sclerosus 11/27/2020 Assessment & Plan (10/26/2024 11:11 AM EDT): Reviewed findings with patient. Well controlled. I reviewed the importance of regular maintenance topical steroid use and the importance of regular follow. I reviewed areas of application and amount of medication to use. Yearly exam. Perennial allergic rhinitis 07/30/2020 Tibia/fibula fracture 08/07/2019 Overview (03/17/2024): Right ankle and knee 07/13 Severe obesity (BMI 35.0-39. 9) with comorbidity (CMS/HCC V24, [facility] [place]28) 06/22/2019 Diabetic retinopathy ([facility] V24, [facility] V28) 06/02/2016 Type 1 diabetes mellitus wit h cataract ([facility] V24, [facility] V28) 06/02/2016 CKD stage 2 due to type 1 di abetes mellitus ([facility] V24, [facility] V28) 05/26/2016 Hyperlipidemia 12/31/2015 Ankle fracture, left 02/21/2015 Overview (03/17/2024): 11/23/2014 Microalbuminuria 07/29/2012 Type I (juvenile type) diabe alexander mellitus with renal manifestations, uncontrolled(250.43) ([facility] V24, [facility] V28) 07/29/2012 Overview (03/17/2024): Onset age 4 Essential hypertension, benign 03/25/2005 Cataract 03/25/2005 Hypothyroidism 03/25/2005 Encounters Date Type Department Care Team Description 10/26/2024 11:45 AM EDT Office Visit Obstetrics and Gynecology - [address] [phone] Caron Sellers MD Lichen sclerosus (Primary Dx) 08/25/2024 9:45 AM EDT Office Visit Endocrinology - [address] [phone] Trinity Sutherland MD Screening for osteoporosis (Primary Dx) from Last 3 Months Immunizations Name Administration Dates Next Due Influenza Quadravalent, MDCK , 0.5ml, preservative free (Flucelvax) 6mo and older 03/21/2018 Influenza Quadravalent, MDCK , 0.5ml, with preservative (Flucelvax) 6mo and older 04/05/2017 Influenza trivalent, 0.5mL, preservative free (Fluarix; FluLaval; Fluzone) ages 6mo and older (Afluria) 3 years and older 04/01/2021,03/09/2019,04/08/2016,04/01,03/27/2014,02/28/2013,03/30/2012 ,03/03/2011,03/19/2010,02/07/2008,11/2006,04/26/2006 Influenza trivalent, with pr eservative (Fluzone; Afluria) 6mo and older 03/25/2005 Moderna (age 6mo & older) Bi valent, COVID-19, 0.5 mL or 0.25 mL dosage 06/19/2023 Moderna SARS-CoV-2 COVID-19, mRNA, LNP-S, preservative free 06/01/2021,06/14/2020 Pneumococcal polysaccharide 23 valent (Pneumovax 23) 2yo and older 03/01/2001 Td Tetanus diptheria (Tdvax) 7yo and older 01/28/2020,04/23/1997 Tdap Tetanus diptheria acell ular pertussis (Boostrix; Adacel) 7yo and older 03/19/2009 Surgical History Surgery Date Site/Laterality Comments SECTION : x2 CATARACT EXTRACTION bilateral HAND SURGERY trigger thumbs TUBAL LIGATION 1989 APPENDECTOMY 2018 Medical History Medical History Date Comments Essential hypertension, benign 03/25/2005 Bilateral cataracts 09/12/2008 : removed Hyperlipidemia 12/31/2015 Microalbuminuria 07/29/2012 Type 1 diabetes, uncontrolle d, with renal manifestation 07/29/2012 : Onset age 4 Type 1 diabetes mellitus wit h eye manifestations ([facility] V24, [facility] V28) 06/02/2016 Type 1 diabetes mellitus wit h cataract ([facility] V24, [facility] V28) 06/02/2016 Tibia/fibula fracture 08/07/2019 : Right an kle and knee 07/13 Hypothyroidism 03/25/2005 Perennial allergic rhinitis 07/30/2020 Recurrent UTI 12/09/2023 Family History Medical History Relation Name Comments Breast cancer Aunt 1 maternal [place] Breast cancer Aunt 2 paternal Diabetes Brother x 1 Diabetes Father type 2, HTN, ar thritis; lung disease Heart attack Maternal Grandfather COPD Maternal Grandmother Asthma Mother Diabetes Mother CABG (age 73); COPD, cataract, IBS Diabetes Sister x 3 Colon cancer Neg Hx Ovarian cancer Neg Hx Uterine cancer Neg Hx Relation Name Status Comments Aunt 1 maternal Alive Aunt 2 paternal Alive Brother x 1 Alive Father Maternal Grandfather Maternal Grandmother Mother Paternal Grandfather Paternal Grandmother Sister x 3 Alive Social History Tobacco Use Types Packs/Day Years Used Date Smoking Tobacco: Former Cigarettes Smokeless Tobacco: Never Tobacco Cessation:Counseling Given: Not Answered Alcohol Use Standard Drinks/Week Comments Yes 1 (1 standard drink = 0.6 oz pur e alcohol) Housing Instability Answer Date Recorde d Are you worried that in the next 2 months you may not have stable housing? No 08/11/2024 Food Access & Nutrition Answer Date Rec orded Do you have access to a vari ety of food including fruits and vegetables? Yes 08/11/2024 Access to Healthcare Answer Date Record ed Within the last 3 months, ho w many times did you visit the emergency department for your medical care? 0 08/11/2024 Health Literacy Answer Date Recorded How often do you need to hav e someone help you when you read instructions, pamphlets, or other written material from your doctor or pharmacy? Rarely 08/11/2024 Caregiver: How often do you need to have someone help you when you read instructions, pamphlets, or other written material from your doctor or pharmacy? Not on file 08/11/2024 Financial Risk Answer Date Recorded How hard is it for you to pa y for the very basics like food, housing, medical care, and air conditioning / heating? Not very hard 08/11/2024 Transportation Answer Date Recorded Has the lack of transportati on kept you from meetings, work, or from getting things needed for daily living? No Has the lack of transportati on kept you from medical appointments or from getting medications? No 08/11/2024 Social Isolation Answer Date Recorded How often do you feel lonely or isolated from th ose around you? Rarely 08/11/2024 Food Risk Answer Date Recorded Within the past 12 months we worried whether our food would run out before we got money to buy more. Never true 08/11/2024 Within the past 12 months th e food we bought just didn't last and we didn't have money to get more. Never true 08/11/2024 Dependent Care Answer Date Recorded Do you need help finding or paying for care for your loved ones. For example, child welfare worker or elderly care for an older adult? No 08/11/2024 Education Answer Date Recorded Do you think completing more education or training, like finishing a GED, going to college, or learning a trade, would be helpful for you? No 08/11/2024 Employment and Income Answer Date Recor ded During the last four weeks, have you been actively looking for work? Yes 08/11/2024 Living Situation Answer Date Recorded What is your living situation? 0 08/11/2024 Comments No Sex and Gender Information Value Date Recorded Sex Assigned at Female 03/15/2024 1:38 PM EDT Legal Sex Female 3:27 AM EST Gender Identity Female 03/15/2024 1:38 PM EDT Sexual Orientation Not on file Obstetrics History Para Term AB IAB SAB Ectopic Multiple Livin g Live Births 2 2 2 2 2 Date Outcome GA Total Labor Labor/2nd/3rd Weight Sex Type Anes PTL Roseanna A1 A5 Name Clin Term Living Term Living Last Filed Vital Signs Vital Sign Reading Time Taken Comments Blood Pressure 148/47 10/26/2024 9:47 AM EDT Pulse 83 10/26/2024 9:47 AM EDT Temperature 36 C (96.8 F) 08/25/2024 9:53 AM EDT Respiratory Rate 17 08/14/2024 2:56 PM EDT Oxygen Saturation 98% 08/25/2024 9:53 AM EDT Inhaled Oxygen Concentration - - Weight 95.7 kg (211 lb) 08/25/2024 9:53 AM EDT Height 160 cm (5' 3 ) 08/25/2024 9:53 AM EDT Body Mass Index 37.38 08/25/2024 9:53 AM EDT Plan of Treatment Upcoming Encounters Date Type Department Care Team (Late st Contact Info) Description 02/22/2025 3:45 PM EDT Office Visit Adult Medicine [address] [phone] Asa Bro MD [address] [place] [address] 02/26/2025 9:30 AM EDT Office Visit Endocrinology [address] [phone] Trinity Sutherland MD [address] [place] [id number] 03/14/2025 9:00 AM EDT Appointment Radiology Department - [place] [address] [place], [place] [address] [phone] 03/14/2025 10:00 AM EDT Appointment Bone Density - [place] [address] [place] [address] Health Maintenance Due Date Last Done Comments Zoster Vaccines (1 of 2) 1978 Pneumococcal Vaccine: 50+ Years (2 of 2 - PCV) 03/01/2002 03/01/2001 Pneumococcal Vaccine: Pediatrics (0 to 5 Years) and At-Risk Patients (6 to 64 Years) (2 of 2 - PCV) 03/01/2002 03/01/2001 RSV Immunization Adult Patients (1 - Risk 60-74 years 1-dose series) 2019 Colorectal Cancer Screening: Stool Based Tests (FOBT/FIT) 10/23/2019 Osteoporosis Screening (Bone Density Screening) 10/23/2019 COVID-19 Vaccine ( season) 2024 06/19/2023, 06/01/2021, 11/28/2020, Additional history exists Diabetes: Annual Foot Exam 07/07/2024 07/07/2023 Diabetes: Annual Urine Albumin-Creatinine Ratio (uACR) 11/01/2024 11/02/2023 Influenza Vaccine (Season Ended) 2025 04/01/2021, 03/09/2019, 03/21/2018, Additional history exists Breast Cancer Screening 02/13/2025 02/14/20 23, 01/04/2021, 07/08/2018, Additional history exists Diabetes: Blood Sugar Control Test (HGBA1C) 02/16/2025 08/16/2024, 11/02/2023, 11/02/2023 Diabetes: Annual GFR (Glomerular Filtration Rate) 07/03/2025 07/03/2024, 07/03/2024, 07/03/2024, Additional history exists Hypertension/CHF/CAD Annual BMP Blood Test 07/03/2025 07/03/2024, 07/03/2024, 07/03/2024, Additional history exists Depression Screening 08/11/2025 08/11/2024 Social Influencers of Health Screening 08/11/2025 08/11/2024 Falls Risk Assessment 08/14/2025 08/14/2024 Diabetes: Annual Retina Eye Exam 10/18/2025 10/18/2024, 03/30/2024, 03/07/2024 Cervical Cancer Screening: HPV 11/28/2026 11/28/2021 Cholesterol Screening (Lipid Panel) 08/16/2029 08/16/2024, 02/14/2024, 02/14/2024 DTaP,Tdap,and Td Vaccines (4 - Td or Tdap) 01/27/2030 01/28/2020, 03/19/2009, 04/23/1997 Hepatitis C Screening Completed 05/03/2013 HIB Vaccines Aged Out No longer eligi ble based on patient's age to complete this topic HPV Vaccines Aged Out No longer eligi ble based on patient's age to complete this topic Hepatitis A Vaccines Aged Out No long er eligible based on patient's age to complete this topic Hepatitis B Vaccines Aged Out No long er eligible based on patient's age to complete this topic IPV Vaccines Aged Out No longer eligi ble based on patient's age to complete this topic MMR Vaccines Aged Out No longer eligi ble based on patient's age to complete this topic Meningococcal ACWY Vaccine Aged Out N o longer eligible based on patient's age to complete this topic Meningococcal B Vaccine Aged Out No l onger eligible based on patient's age to complete this topic RSV Immunization Patients Under 20 months Aged Out No longer eligible based on patient's age to complete this topic Varicella Vaccines Aged Out No longer eligible based on patient's age to complete this topic Procedures Procedure Name Priority Date/Time Associated Diagnosis Comments EXTERNAL DIABETIC RETINA EYE EXAM 10/18/2024 LIPID PANEL WITH REFLEX TO DIRECT LDL Routine 08/16/2024 4:48 PM EDT Pure hypercholesterolemia HEMOGLOBIN A1C Routine 08/16/2024 4:48 PM EDT Type I (juvenile type) diabetes mellitus with renal manifestations, uncontrolled(250.43) (CMS/[facility] V24, CMS/[facility] V28) THYROID STIMULATING HORMONE WITH REFLEX TO FREE T4 AND FREE T3 Routine 08/16/2024 4:48 PM EDT Hypothyroidism, unspecified type COMPREHENSIVE METABOLIC PANEL Routine 07/03/2024 11:25 AM EST Chronic kidney disease (CKD) stage G3b/A1, moderately decreased glomerular filtration rate (GFR) between 30-44 mL/min/1.73 square meter and albuminuria creatinine ratio les* (CMS/HCC V24, CMS/HCC V28) Severely overweight Localized edema Hyposmolality syndrome Primary hypertension Diabetes mellitus ([facility]/HCC V24, [facility] V28) URINE ALBUMIN CREATININE RATIO Routine 11/02/2023 DIABETES FOOT EXAM Routine 07/07/2023 SCREENING MAMMOGRAPHY BI 2-VIEW BREAST INC CAD Routine 02/13/2023 10:49 AM EDT Encounter for screening mammogram for malignant neoplasm of breast HPV Routine 11/28/2021 HEPATITIS C SCREENING Routine 05/03/2013 from Last 3 Months or Most Recently Relevant to Health Maintenance Results * External Diabetic Retina Eye Exam Report (10/18/2024) Anatomical Region Laterality Modality Ultrasound us Provider [facility] US PROCEDURES Final Result * Thyroid stimulating hormone with reflex to free t4 and free t3 (08/16/2024 4:48 PM EDT) TSH 1.60 0.40 - 4.00 mcIU/mL LAB CHEMISTRY METHOD 08/16/2024 9:13 PM EDT [facility] Blood Venous blood specimen / Unknown Venipuncture / Unknown 08/16/2024 4:48 PM EDT 08/16/2024 4:48 PM EDT us Asa Bro MD LAB BLOOD ORDERABLES Final Resu lt [facility] [address] [place] [address], [place] [phone] * Lipid panel with reflex to direct LDL (08/16/2024 4:48 PM EDT) Cholesterol 158 0 - 200 mg/dL LAB CHEMISTRY METHOD 08/16/2024 7:36 PM EDT [facility] Triglycerides 87 0 - 150 mg/dL LAB CHEMISTRY METHOD 08/16/2024 7:36 PM EDT [facility] HDL 89 >=40 mg/dL LAB CHEMISTRY METHOD 08/16/2024 7:36 PM EDT [facility] LDL Calculated 52 0 - 100 mg/dL LAB CHEMISTRY METHOD 08/16/2024 7:36 PM EDT [facility] VLDL Cholesterol Pascual 17.4 mg/dL LAB CHEMISTRY METHOD 08/16/2024 7:36 PM EDT [facility] Non HDL Chol. (LDL+VLDL) 69 <145 mg/dL LAB CHEMISTRY METHOD 08/16/2024 7:36 PM EDT [facility] Chol/HDL Ratio 1.8 0.0 - 4.4 LAB CHEMISTRY METHOD 08/16/2024 7:36 PM EDT [facility] Blood Venous blood specimen / Unknown Venipuncture / Unknown 08/16/2024 4:48 PM EDT 08/16/2024 4:48 PM EDT us Asa Bro MD LAB BLOOD ORDERABLES Final Resu lt [facility] [address] [place] [address], [place] [phone] * (ABNORMAL) Hemoglobin A1c (08/16/2024 4:48 PM EDT) Hemoglobin A1C 7.0(H) <6.5 % LAB CHEMISTRY METHOD 08/17/2024 1:56 PM EDT [facility] Mean Bld Glu Estim. 154 mg/dL LAB CHEMISTRY METHOD 08/17/2024 1:56 PM EDT [facility] Blood Venous blood specimen / Unknown Venipuncture / Unknown 08/16/2024 4:48 PM EDT 08/16/2024 4:48 PM EDT us Asa Bro MD LAB BLOOD ORDERABLES Final Resu lt [facility] [address] [place] [address], [place] [phone] * (ABNORMAL) Comprehensive metabolic panel (07/03/2024 11:25 AM EST) Sodium 138 133 - 145 mmol/L LAB CHEMISTRY METHOD 07/03/2024 4:[address] [facility] Potassium 4.9 3.5 - 5.5 mmol/L LAB CHEMISTRY METHOD 07/03/2024 4:[address] [facility] Chloride 107 96 - 110 mmol/L LAB CHEMISTRY METHOD 07/03/2024 4:[address] [facility] CO2 22 21 - 32 mmol/L LAB CHEMISTRY METHOD 07/03/2024 4:[address] [facility] Anion Gap 9 3 - 11 LAB CHEMISTRY METHOD 07/03/2024 4:[address] [facility] Glucose 185(H) 70 - 100 mg/dL LAB CHEMISTRY METHOD 07/03/2024 4:[address] [facility] BUN 32(H) 5 - 25 mg/dL LAB CHEMISTRY METHOD 07/03/2024 4:[address] [facility] Creatinine 1.62(H) 0.50 - 1.10 mg/dL LAB CHEMISTRY METHOD 07/03/2024 4:[address] [facility] eGFR 35(L) >=60 mL/min/1. 73m2 LAB CHEMISTRY METHOD 07/03/2024 4:[address] [facility] Comment:Calculation based on the Chronic Kidney Disease Epidemiology Collaboration (CKD-EPI) equation refit without adjustment for race. BUN/Creatinine Ratio 19.8 LAB CHEMISTRY METHOD 07/03/2024 4:[address] [facility] Calcium 9.9 8.5 - 10.5 mg/dL LAB CHEMISTRY METHOD 07/03/2024 4:[address] [facility] AST (SGOT) 12 10 - 42 unit/L LAB CHEMISTRY METHOD 07/03/2024 4:[address] [facility] ALT (SGPT) 20 10 - 60 unit/L LAB CHEMISTRY METHOD 07/03/2024 4:[address] [facility] Alkaline Phosphatase 133(H) 42 - 121 unit/L LAB CHEMISTRY METHOD 07/03/2024 4:[address] [facility] Total Protein 7.1 6.0 - 8.0 g/dL LAB CHEMISTRY METHOD 07/03/2024 4:[address] [facility] Albumin 4.2 3.2 - 5.0 g/dL LAB CHEMISTRY METHOD 07/03/2024 4:[address] [facility] Total Bilirubin 1.0 0.0 - 1.4 mg/dL LAB CHEMISTRY METHOD 07/03/2024 4:[address] [facility] Blood Venous blood specimen / Unknown Venipuncture / Unknown 07/03/2024 11:25 AM EST 07/03/2024 11:25 AM EST us Pito Mccormack MD LAB BLOOD ORDERABLES Final Result [facility] [address] [place] [address], [place] [phone] * Urine Albumin Creatinine Ratio (11/02/2023) Urine Albumin Creatinine Ratio Abstracted us Historical Provider HEALTH MAINTENANCE Final Result * Diabetes Foot Exam (07/07/2023) Pathologist [facility] Diabetes: Annual Foot Exam Abstracted Historical Provider HEALTH MAINTENANCE Final Result * SCREENING MAMMOGRAPHY BI 2-VIEW BREAST INC CAD (02/13/2023 10:49 AM EDT) Anatomical Region Laterality Modality Radiographic Sarah ging 01/04/2021 11:4 1 AM EDT Narrative 02/15/2023 4:32 PM EDT This is a summary report. The complete report is available in the patient's medical record. If you cannot access the medical record, please contact the sending organization for a detailed fax or copy. Exam: Screening mammogram Findings: Digital bilateral full-field screening mammography is performed with tomosynthesis and interpreted with the aid of computer-aided detection. Comparison is made with 01/04/2021 and 07/08/2018. Breast parenchyma is composed of scattered fibroglandular densities. No new suspicious mass, architectural distortion, or suspicious calcifications. Impression: No mammographic evidence of malignancy. BI-RADS 1 - negative Procedure Note Judy Moctezuma MD - 06/28/2023 This is a summary report. The complete report is available in thepatient's medical record. If you cannot access the medical record, pleasecontact the sending organization for a detailed fax or copy. Exam: Screening mammogram Findings: Digital bilateral full-field screening mammography is performedwith tomosynthesis and interpreted with the aid of computer-aideddetection. Comparison is made with 01/04/2021 and 07/08/2018. Breast parenchyma is composed of scattered fibroglandular densities. Nonew suspicious mass, architectural distortion, or suspiciouscalcifications. Impression: No mammographic evidence of malignancy. BI-RADS 1 - negative Asa Bro MD IMG XR PROCEDURES Final Result * Cervical Cancer Screening: HPV (11/28/2021) Pathologist [facility] Cervical Cancer Screening: HPV Negative, Abstracted Historical Provider HEALTH MAINTENANCE Final Result * Hepatitis C Screening (05/03/2013) Pathologist [facility] Hepatitis C Screening Abstracted us Historical Provider HEALTH MAINTENANCE Final Result from Last 3 Months or Most Recently Relevant to Health Maintenance Insurance [employer] D[employer] Care Teams Rn Cvor Relationship Specialty Start Date End Date Asa Bro MD [address] [place] [id number] PCP - General Internal Medicine 03/15/20
== END 2024-11-15 11:23 | disposition home or self-care (01) ==
PROVIDERS: PCP Internal Medicine; Visit Provider Physician Assistant
DX: J22 Unspecified acute lower respiratory infection (principal)

== ENCOUNTER → 2024-11-15 11:14 | Outpatient (BNV) | payer OTHER, SELFPAY | PROVIDERS: PCP Internal Medicine; Visit Provider Radiology Diagnostic Radiology | DX: J98.11 Atelectasis (principal) | CPT/HCPCS: 71046 ==

== ENCOUNTER 2025-03-02 15:12 | Outpatient (REF) | payer OTHER, SELFPAY ==
[2025-03-02 15:35] LABS: MANUAL DIFF FLAG NO
[2025-03-02 15:53] LABS: Hematocrit 34.5 % (37.0-47.0); Hemoglobin 10.9 g/dl (12.0-16.0); Imm Gran Abs Auto 0.02 X10*3/uL (0.00-0.03); Imm Gran Pct Auto 0.2 % (0.0-0.4); Lymphocytes Absolute Auto 0.7 X10*3/uL (1.2-4.9); Mean Corpuscular HGB Conc 31.6 g/dl (31.0-35.0); Mean Corpuscular Hemoglobin 28.8 pg (27.0-33.0); Mean Corpuscular Volume 91.3 fL (80.0-98.0); NRBC Abs Auto 0.000 X10*3/uL (0.0-0.012); NRBC Pct Auto 0.0 /100WBC (0.0-0.2); Platelet Count 254 X10*3/uL (160-400); Red Blood Count 3.78 X10*6/uL (4.20-5.50); White Blood Count 8.4 X10*3/uL (4.8-10.8)
[2025-03-02 16:01] LABS: Hemoglobin A1C 144.1651 umol/L
[2025-03-02 16:30] LABS: Alanine Aminotransferase 15 U/L (0-31); Albumin Level 4.4 g/dL (3.5-5.0); Anion Gap 14 (12-20); Aspartate Amino Transferase 30 U/L (5-31); Blood Urea Nitrogen 65 mg/dL (9-16); Calcium 9.5 mg/dL (8.4-10.2); Carbon Dioxide 23 mmol/L (22-29); Chloride 109 mmol/L (96-108); Cholesterol 126 mg/dL (<200); Estimated Glomerular Filt Rate 30; HDL Cholesterol 60 mg/dL (>40); Potassium 5.8 mmol/L (3.3-5.1); Sodium 140 mmol/L (135-145); Total Protein 7.2 g/dL (6.5-8.0); Triglycerides 126 mg/dL (<150)
[2025-03-02 16:33] LABS: Magnesium 2.1 mg/dL (1.6-2.6); Uric Acid 9.9 mg/dL (2.4-5.7)
[2025-03-02 16:38] LABS: Parathyroid Hormone Intact 119.3 pg/mL (8.7-77.1)
[2025-03-02 16:52] LABS: Alkaline Phosphatase 134 U/L (39-117)
[2025-03-02 19:20] LABS: Total Protein Urine Random < 7 mg/dL (<12)
== END 2025-03-02 15:13 | disposition home or self-care (01) ==
LOC: HO.LAB 15:12
PROVIDERS: Absent Provider Internal Medicine Nephrology; PCP Internal Medicine; Visit Provider Internal Medicine
DX: I12.9 Hypertensive chronic kidney disease with stage 1 through stage 4 chronic kidney disease, or unspecified chronic kidney disease (principal); E10.22 Type 1 diabetes mellitus with diabetic chronic kidney disease; N18.2 Chronic kidney disease, stage 2 (mild); E10.65 Type 1 diabetes mellitus with hyperglycemia; E03.9 Hypothyroidism, unspecified; E78.00 Pure hypercholesterolemia, unspecified; E87.1 Hypo-osmolality and hyponatremia; E87.5 Hyperkalemia; R80.9 Proteinuria, unspecified; Z79.899 Other long term (current) drug therapy
CPT/HCPCS: 36415; 80053; 80061; 82043; 82306; 82570; 83036; 83735; 83970; 84100; 84156; 84443; 84481; 84550; 85025

== ENCOUNTER 2025-04-12 15:53 | Outpatient (AMB) | payer OTHER, SELFPAY ==
--- NOTE | 2025-04-12 15:55 | MHC.PC.OV ---
Vital Signs 04/12/25 15:59 Height 5 ft 2 in Weight 204 lb BMI 37.3 BP 134/48 L Blood Pressure Location Lt brachial Position Sitting Respiration 18 Pulse 78 Pulse Source Pulse Oximeter Temp 98.1 F Temp Source Temporal Artery Scan Pulse Oximetry (%) 96 Oxygen Delivery Method Room Air Intake Visit Reasons: Establish Care/ New Patient - see comments Blueprint Duplicator Required: No Accompanied by: Self / Same As Patient Allergies amoxicillin Allergy (Intermediate, Verified 04/12/25 15:55) Rash penicillin V Allergy (Intermediate, Verified 04/12/25 15:55) Rash Tobacco use date assessed: 04/12/25 Last assessed Fall Risk: 04/12/25 Dental Screening Dental Screen Date: 04/12/25 Did you have a dental visit in the last 12 months?: Yes Did you have a dental problem in the last 6 months where you did not have access to dental care?: No Was dental information given to patient?: Patient has dentist HPI HPI Comments History of Present Illness Details History of Present Illness The patient is a 64 year old individual presenting to establish primary care after the patient's previous providers at [facility] left the practice. The patient has a history of diabetes, managed with insulin glargine 26 units daily and a sliding scale for short-acting insulin. The patient's A1c was 6.8% on 03/02, and care is being transferred to Dr. Garza in endocrinology. For hypercholesterolemia, the patient takes atorvastatin, and recent blood work showed an LDL of 41. Hypertension is managed with a multi-drug regimen including diltiazem 180 mg once daily, hydralazine three times daily, spironolactone 25 mg once daily, and olmesartan 40 mg. The patient has stage 4 chronic kidney disease and is managed by a private courier driver, Dr. Lopez, whom the patient intends to continue seeing. Associated hyperkalemia is treated with sodium zirconium (Lokelma) once a week. Hypothyroidism is treated with levothyroxine 75 mcg daily, with a recent stable TSH of 1.07. This was previously managed by Dr. Bro and will now be managed by either the new PCP or the ground helper street railway. Past medical history includes an episode of bronchitis, for which an albuterol inhaler was prescribed but is no longer used. The patient had eye surgery in May of this year, followed by an episode of eye soreness, redness, and swelling in December, for which one injection was administered. The patient's surgical history includes a back fusion in 2022, two C-sections, and an appendectomy around 2014. The patient has a strong family history of diabetes affecting the patient's mother, father, and siblings, and a maternal history of heart disease. The patient is a former smoker, having quit 37 years ago, and consumes alcohol occasionally. There is a reported allergy to amoxicillin/penicillin from a long time ago, which has not been retested. Medical History: - Diabetes Mellitus - Hypertension - Hypercholesterolemia - Chronic Kidney Disease, Stage 4 - Hypothyroidism - Hyperkalemia - Anemia of Chronic Disease - History of bronchitis - History of eye swelling, status post-injection - Penicillin allergy, reported Surgical History: - Back fusion (2022) - sections () - Appendectomy (approx. 2014) - Eye surgery (May of this year) Medications: - Albuterol inhaler for a past episode of bronchitis, not currently in use. - Atorvastatin 20 mg for hypercholesterolemia. - Insulin glargine (Lantus) 26 units daily for diabetes. - Short-acting insulin via sliding scale for diabetes. - Diltiazem 180 mg once daily for hypertension. - Hydralazine three times per day (one in the morning, one in the afternoon, two at night) for hypertension. - Spironolactone 25 mg once daily for hypertension. - Olmesartan 40 mg for hypertension. - Levothyroxine 75 mcg once a day for hypothyroidism. - Sodium zirconium (Lokelma) once a week for hyperkalemia. Family History: - Diabetes: Positive for mother, father, and siblings. - Heart Disease: Positive for mother. - Cancer: Denied. Diagnostic Results: - Labs (from 03/02): - LDL cholesterol: 41 - Hemoglobin A1c: 6.8% - TSH: 1.07 - Hemoglobin: 10 - Potassium: Elevated (value not specified) Social History - Tobacco Use: Former smoker, quit 37 years ago. - Alcohol Use: Reports occasional use, consuming a glass of wine about once a month. - Illicit Drug Use: Denies use of marijuana and cocaine. 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 1. Little interest or pleasure in doing things: not at all 2. Feeling down, depressed, or hopeless: not at all 3. Trouble falling or staying asleep, or sleeping too much: not at all 4. Feeling tired or having little energy: not at all 5. Poor appetite or overeating: not at all 6. Feeling bad about yourself - or that you are a failure or have let yourself or your family down: not at all 7. Trouble concentrating on things, such as reading the newspaper or watching television: not at all 8. Moving or speaking so slowly that other people could have noticed. Or the opposite - being so fidgety or restless that you have been moving around a lot more than usual: not at all 9. Thoughts that you would be better off or of hurting yourself in some way: not at all Total score: 0 Depression Screening Interpretation: Negative Depression Screening Done: Yes 53794 - PHQ-9 Billing: Yes Source: Developed by Drs. Sam Woodward, Ruth Juarez, Rusty Giang and colleagues, with an educational margaret from [employer]. Thrive Questionnaire Date Thrive assessed: 04/12/25 I am a: Patient What is your living situation today?: I have a steady place to live Within the past 12 months, did the food you bought not last and you didn't have the money to get more?: Never true Within the past 12 months, did you worry whether your food would run out before you got money to buy more?: Never true Do you have trouble paying for medicines?: No Do you have trouble getting transportation to medical appointments?: No Do you have trouble paying your heating and electricity bill?: No Do you have trouble taking care of your child, family member or friend?: No Do you have trouble with day-to-day activities such as bathing, preparing meals, shopping, managing finances, etc.?: No Are you currently unemployed and looking for a job?: No Are you interested in more education?: No THRIVE Score: 0 AUDIT C Alcohol Use Questionnaire (AUDIT-C) 1. How often do you have a drink containing alcohol?: Monthly or less 2. How many drinks containing alcohol do you have on a typical day when you are drinking?: 1 or 2 Total Score: 1 Score Reviewed/Action Taken: Yes CHINYERE-7 AMB Questionnaire CHINYERE-7 Date CHINYERE - 7 assessed: 04/12/25 Feeling nervous, anxious, or on edge: 0 = Not at all Not being able to stop or control worryin = Not at all Worrying too much about different things: 0 = Not at all Trouble relaxin = Not at all Being so restless that it is hard to sit still: 0 = Not at all Becoming easily annoyed or irritable: 0 = Not at all Feeling afraid as if something awful might happen: 0 = Not at all Total CHINYERE-7 score (0-4 normal; 5-9 mild; 10-14 moderate; 15-21 severe): 0 Source: Developed by Drs. Sam Woodward, Ruth Juarez, Rusty Giang and colleagues, with an educational margaret from [employer]. CHINYERE-7 Assessment Billing CHINYERE-7 Assessment Tool: CHINYERE-7 Assessment 65785 Review of Systems Narrative Review of Systems - Constitutional: Denies nausea and vomiting. - Eyes: Reports history of eye soreness, redness, and swelling. - Cardiovascular: Denies chest pain. - Respiratory: Denies shortness of breath. - Gastrointestinal: Reports normal bowel movements. - Genitourinary: Reports normal urination. All systems reviewed & are unremarkable except as reviewed in HPI and above Physical exam (Primary Care) Vital Signs: Last Vital Signs Temp 98.1 F 04/12/25 15:59 Pulse 78 04/12/25 15:59 Resp 18 04/12/25 15:59 BP 134/48 L 04/12/25 15:59 Pulse Ox 96 04/12/25 15:59 Oxygen Delivery Method Room Air 04/12/25 15:59 BMI result Body Mass Index 37.3 Tobacco/Smoking Status: Tobacco use Status Tobacco use date assessed 04/12/25 04/12/25 15:58 Patient Tobacco Use Status Former Tobacco user 04/12/25 15:58 Tobacco use type Cigarette 04/12/25 16:09 e-Cigarette/Vaping Use Never Used 04/12/25 16:09 PHQ-9: PHQ-9 Score PHQ-9: Total score 0 04/12/25 16:20 Depression Screening Interpretation: Negative Thrive Assessment: Date of Thrive Assessment Date Thrive assessed 04/12/25 04/12/25 16:03 Narrative Physical Exam General: +Alert and oriented, Well nourished, No acute distress. Eye: Pupils are equal, round and reactive to light, Intact accommodation, Extraocular movements are intact, Normal conjunctiva, Vision unchanged. Swelling behind eyes noted, history of eye surgery in May, and injection in December for soreness and redness. HENT: Normocephalic, Atraumatic, Tympanic membranes are clear, Normal hearing, Oral mucosa is moist, No pharyngeal erythema, Ear canals patent. Respiratory: Lungs CTA bilaterally, No wheeze, Respirations are non-labored. Cardiovascular: Regular rate, Regular rhythm, S1 auscultated, S2 auscultated, No murmur, Good pulses equal in all extremities, Normal peripheral perfusion, No edema. Gastrointestinal: Soft, Non-tender, Non-distended, Normal bowel sounds, No organomegaly. Musculoskeletal: Normal range of motion, Normal strength, No tenderness, No swelling, No deformity, Normal gait. Integumentary: Warm, Dry, [place], Intact. Neurologic: Alert, Oriented, Normal sensory, Normal motor function, No focal defects, Cranial Nerves II-XII are grossly intact, Normal deep tendon reflexes. Psychiatric: Cooperative, Appropriate mood & affect, Normal judgment. Coding Level of Care Code New Pt Level 4 (63696) New Pt Prev Care >65yr (15504) Diagnoses Primary hypertension I10 Type 2 diabetes mellitus with stage 4 chronic kidney disease, with long-term current use of insulin E11.22; N18.4; Z79.4 Chronic kidney disease stage: stage 4 (GFR 15-29) Diabetes mellitus complication detail: with chronic kidney disease Diabetes mellitus complication status: with kidney complications Diabetes mellitus [facility] insulin use: with [facility] use Diabetes mellitus type: type 2 CKD (chronic kidney disease) stage 4, GFR 15-29 ml/min N18.4 Hyperlipidemia, unspecified hyperlipidemia type E78.5 Hyperlipidemia type: unspecified Other specified hypothyroidism E03.8 Hypothyroidism type: other Anemia in stage 4 chronic kidney disease N18.4; D63.1 Chronic kidney disease stage: stage 4 (GFR 15-29) Annual physical exam Z00.00 Additional Codes CHINYERE-7 Assessment Billing - CHINYERE-7 Assessment Tool: CHINYERE-7 Assessment [id number] ([id number]) PHQ-9 - 65693 - PHQ-9 Billing: Yes ([id number]) Comment [id number] Assessment & Plan Assessment & Plan (1) Primary hypertension: Comment: - The patient is on a multidrug regimen, and blood pressure is noted to be well-controlled. - There is a concern about using spironolactone in the context of hyperkalemia, as it could be contributing to the issue. - The patient was advised to discuss this with the courier driver. - No medication changes were made. Code(s): I10 - Essential (primary) hypertension Category: Medical (2) Diabetes: Comment: - The condition is stable, with a recent A1c of 6.8%. - The patient will continue the current insulin regimen and will be managed by the ground helper street railway, Dr. Garza. Code(s): E11.9 - Type 2 diabetes mellitus without complications Category: Medical Qualifiers: Chronic kidney disease stage: stage 4 (GFR 15-29) Diabetes mellitus complication detail: with chronic kidney disease Diabetes mellitus complication status: with kidney complications Diabetes mellitus intermodal dispatcher insulin use: with [facility] use Diabetes mellitus type: type 2 Qualified Code(s): E11.22 - Type 2 diabetes mellitus with diabetic chronic kidney disease; N18.4 - Chronic kidney disease, stage 4 (severe); Z79.4 - senior living (current) use of insulin (3) CKD (chronic kidney disease) stage 4, GFR 15-29 ml/min: Comment: - Management will continue under the care of the patient's private courier driver. Code(s): N18.4 - Chronic kidney disease, stage 4 (severe) Category: Medical (4) Hyperlipidemia: Comment: - The condition is well-controlled with atorvastatin, as indicated by a recent LDL of 41. - The patient will continue the current medication. Code(s): E78.5 - Hyperlipidemia, unspecified Category: Medical Qualifiers: Hyperlipidemia type: unspecified Qualified Code(s): E78.5 - Hyperlipidemia, unspecified (5) Hypothyroidism: Comment: - The condition is stable on levothyroxine, with a recent TSH of 1.07. - No medication changes are needed at this time. Code(s): E03.9 - Hypothyroidism, unspecified Category: Medical Qualifiers: Hypothyroidism type: other Qualified Code(s): E03.8 - Other specified hypothyroidism (6) Anemia in chronic kidney disease: Comment: - A new diagnosis of borderline anemia was made, with a hemoglobin of 10. - The patient was educated that this is likely related to CKD. - The plan is to monitor this condition. Code(s): N18.9 - Chronic kidney disease, unspecified; D63.1 - Anemia in chronic kidney disease Category: Medical Qualifiers: Chronic kidney disease stage: stage 4 (GFR 15-29) Qualified Code(s): N18.4 - Chronic kidney disease, stage 4 (severe); D63.1 - Anemia in chronic kidney disease (7) Annual physical exam: Comment: - Orders were placed for a mammogram, bone density scan, and a Cologuard test for colon cancer screening. - The patient's Pap smear is up to date from last year. - The patient received a flu shot and declined the COVID-19 vaccine. - The patient was encouraged to continue healthy lifestyle habits. Code(s): Z00.00 - Encounter for general adult medical examination without abnormal findings Category: Medical Plan: Health Maintenance: - Cervical Cancer Screening: The patient's last Pap smear was last year. - Breast Cancer Screening: The patient's last mammogram was last year. An order for a new mammogram was placed. - Colorectal Cancer Screening: The patient has never had a colonoscopy. An order was placed for a Cologuard test. - Osteoporosis Screening: An order for a bone density scan was placed. - Immunizations: The patient has received an influenza vaccination and declined a COVID-19 vaccination for this year. - Lifestyle: The patient was commended for managing the patient's health well and was encouraged to continue eating healthy and staying active. Patient was informed and verbally consented to the use of an ambient scribe for clinic note documentation during this visit. Vital signs reviewed. Comprehensive history, review of systems, and physical exam completed. Medications, allergies, and problem list reviewed and updated. Counseling provided on nutrition, regular exercise, sleep hygiene, and moderation of alcohol use. Discussed age-appropriate screenings (mammogram, colonoscopy, Pap, bone density) and immunizations (flu, COVID, shingles, Tdap). Screened for depression, fall risk, and home safety; no current concerns. Discussed stress management, dental and vision care, and importance of ongoing preventive follow-up. Routine labs ordered for metabolic and lipid screening. Patient educated on healthy lifestyle and agrees with the plan. Plan I commended the patient for maintaining excellent control over the patient's multiple chronic conditions, including diabetes, hypertension, and hypercholesterolemia, as evidenced by stable lab results. I discussed the new finding of borderline anemia, with a hemoglobin of 10, explaining it is likely related to the patient's chronic kidney disease and that we will monitor it for now. I also shared my clinical opinion regarding the patient's spironolactone use, noting that it increases potassium and may be causing the hyperkalemia that is now being treated with Lokelma; I advised the patient to discuss this with the patient's courier driver. We reviewed necessary health screenings, and I have ordered a mammogram, a bone density scan, and a Cologuard test. I will see the patient back in four months for a follow-up visit. Orders: Orders XR DEXA axial skeleton Today M81.0 - Age-related osteoporosis without current pathological fracture MM screening mammo BI Today Z12.31 - Encounter for screening mammogram for malignant neoplasm of breast Referrals Cologuard Test Z12.11 - Encounter for screening for malignant neoplasm of colon Patient Instructions: - You have done an amazing job managing your health. Continue to take your medications as prescribed. - We have ordered a mammogram and a bone density scan for you. Please call to schedule these tests. - A Cologuard kit for colon cancer screening will be sent to your house. Please follow the instructions to complete and mail back the test. - At your next visit with your kidney doctor, please discuss whether you still need to take the medication spironolactone. - Continue to eat healthy and stay active. - Please schedule a follow-up appointment with our office in four months.
[2025-04-12 15:59] VITALS: BP 134/48; PULSE 78; RESP 18; TEMP 36.7; O2SAT 96; BMI 37.3
--- OUTSIDE RECORDS SUMMARY | 2025-04-12 20:49 | XMS_ITS | Clinical Summary ---
Author Organization [facility] Address [address] [address] Phone Care Team Providers Care Director Of Teenage Activities Name Role Phone Asa Bro MD Primary Care Provider [phone] Allergies Active Allergy Reactions Criticality Noted Date Comments Amoxicillin Rash Low 11/21/2020 Penicillin G 11/21/2020 Medications atorvastatin (LIPITOR) 20 MG tablet Take 20 mg by mouth 1 (one) time each day 1 Active dilTIAZem CD (CARDIZEM CD) 180 MG 24 hr capsule Take 180 mg by mouth 1 (one) time each day 1 Active furosemide (LASIX) 20 MG tablet Take 20 mg by mouth 1 (one) time each day 1 Active HumaLOG KWIKPEN 100 UNIT/ML solution pen-injector 1 Active levothyroxine (SYNTHROID, LEVOTHROID) 75 MCG tablet Take 75 mcg by mouth 1 (one) time each day 1 Active cetirizine (ZyrTEC) 10 MG tablet Take 10 mg by mouth 1 (one) time each day Active Contour Next Test test strip 1 Active nystatin-triamcino lone (MYCOLOG II) ointment APPLY A THIN LAYER TO AFFECTED AREA NIGHTLY 1 Active olmesartan (BENICAR) 40 MG tablet 2 Active Lantus SoloStar 100 UNIT/ML injection Inject 26 Units under the skin 1 (one) time each day 3 Active cholecalciferol (VITAMIN D-3) 50 MCG (1999 UT) capsule Take 1 capsule (2,000 Units total) by mouth 1 (one) time each day 90 capsule 3 5 Active hydrALAZINE 50 MG tablet Take 1 tablet (50 mg total) by mouth in the morning and 1 tablet (50 mg total) at noon and 1 tablet (50 mg total) in the evening and 1 tablet (50 mg total) before bedtime. 360 tablet 3 5 07/25/19 26 Active spironolactone (ALDACTONE) 25 MG tabletIndications: Stage 3b chronic kidney disease (HCC),Diabetes mellitus, not otherwise specified (HCC),Hyperkalemia TAKE 1 TABLET BY MOUTH 1 TIME EACH DAY. 90 tablet 1 5 Active Sodium Zirconium Cyclosilicate (Lokelma) 10 g pack Take 1 packet by mouth per week 13 each 3 5 Active Active Problems Problem Noted Date Diagnosed Date Recurrent urinary tract infection 12/09/2023 Stage 3b chronic kidney disease 03/28/2022 Localized edema 01/22/2021 Hyponatremia 01/22/2021 Hyperkalemia 11/20/2020 Diabetes mellitus, not otherwise specified 11/20 Hypothyroidism 11/20/2020 Obesity 11/20/2020 Essential (primary) hypertension 11/20/2020 Retinopathy due to diabetes mellitus 06/02/2016 Microalbuminuria 07/29/2012 Type 1 diabetes mellitus wit h other diabetic kidney complication 07/29/2012 Overview (07/02/2024): Onset age 4 Resolved Problems Problem Noted Date Diagnosed Date Resolved Date Chronic renal insufficiency 11/20/2020 01/22/2021 Chronic kidney disease 11/20/202003/28 Encounters Date Type Department Care Team Description 04/02/2025 9:20 AM EST Office [facility] [address] [address] Pito Mccormack MD Stage 3b chronic kidney disease (HCC) (Primary Dx); Diabetes mellitus, not otherwise specified (HCC); Essential (primary) hypertension; Hyperkalemia; Hyponatremia; Localized edema; Microalbuminuria; Overweight; Type 1 diabetes mellitus with other diabetic kidney complication (HCC) from Last 3 Months Social History Tobacco Use Types Packs/Day Years Used Date Smoking Tobacco: Former Smokeless Tobacco: Never Alcohol Use Standard Drinks/Week Comments Not Currently 1 (1 standard drink = 0.6 oz pur e alcohol) occasional Comments Unknown Sex and Gender Information Value Date Recorded Sex Assigned at Not on file Legal Sex Female 10:03 AM EDT Gender Identity Not on file Sexual Orientation Not on file Last Filed Vital Signs Vital Sign Reading Time Taken Comments Blood Pressure 142/68 04/02/2025 9:23 AM EST Pulse 84 04/02/2025 9:23 AM EST Temperature - - Respiratory Rate - - Oxygen Saturation 98% 04/02/2025 9:23 AM EST Inhaled Oxygen Concentration - - Weight 93 kg (205 lb) 04/02/2025 9:23 AM EST Height 160 cm (5' 3 ) 07/04/2024 11:25 AM EST Body Mass Index 36.31 07/04/2024 11:25 AM EST Plan of Treatment Upcoming Encounters Date Type Department Care Team (Late st Contact Info) Description 10/01/2025 10:40 AM EDT Office Visit [facility] [address] [address] Pito Mccormack MD [address] [phone] Health Maintenance Due Date Last Done Comments Breast Cancer Screening 1960 Pneumococcal Vaccine: 50+ Years (2 of 2 - PCV) 03/01/2002 03/01/2001 Colorectal Cancer Screening: Annual FOBT 2008 Colorectal Cancer Screening: Colonoscopy 2008 Colorectal Cancer Screening: Sigmoidoscopy 2008 Diabetes: Ophthalmology Exam 11/20/2020 06/16/2011, 03/14/2009, 04/20/2007 Diabetes: Pedal Pulse Checked 11/20/2020 Diabetes: Sensory Foot Exam 11/20/2020 Diabetes: Visual Foot Exam 11/20/2020 Diabetes: Hemoglobin A1C 11/16/2024 025, 08/16/2024, 11/02/2023, Additional history exists Pneumococcal Vaccine: Peds (0 to 5 Years) and At-Risk Patients (6 to 49 Years) Discontinued 03/01/2001 Influenza Vaccine Completed 02/22/2025, , 04/01/2021, Additional history exists Hepatitis B Vaccine Aged Out No longe r eligible based on patient's age to complete this topic Procedures Procedure Name Priority Date/Time Associated Diagnosis Comments PROTEIN,TOTAL,URINE Routine 03/02/2025 6 :45 PM EDT PTH, INTACT (HC) Routine 03/02/2025 3:34 PM EDT CBC AND DIFFERENTIAL Routine 03/02/2025 3:34 PM EDT Stage 3b chronic kidney disease (HCC) Microalbuminuria Hyponatremia Hyperkalemia Essential (primary) hypertension Diabetes mellitus, not otherwise specified (HCC) 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) Type 1 diabetes mellitus with other diabetic kidney complication (HCC) VITAMIN D 25 HYDROXY Routine 03/02/2025 3:34 PM EDT Stage 3b chronic kidney disease (HCC) Microalbuminuria Hyponatremia Hyperkalemia Essential (primary) hypertension Diabetes mellitus, not otherwise specified (HCC) 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) Type 1 diabetes mellitus with other diabetic kidney complication (HCC) PHOSPHATE ( PHOSPHORUS) Routine 03/02/2025 3:34 PM EDT Stage 3b chronic kidney disease (HCC) Microalbuminuria Hyponatremia Hyperkalemia Essential (primary) hypertension Diabetes mellitus, not otherwise specified (HCC) 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) Type 1 diabetes mellitus with other diabetic kidney complication (HCC) MAGNESIUM Routine 03/02/2025 3:34 PM EDT Stage 3b chronic kidney disease (HCC) Microalbuminuria Hyponatremia Hyperkalemia Essential (primary) hypertension Diabetes mellitus, not otherwise specified (HCC) 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) Type 1 diabetes mellitus with other diabetic kidney complication (HCC) URIC ACID Routine 03/02/2025 3:34 PM EDT Stage 3b chronic kidney disease (HCC) Microalbuminuria Hyponatremia Hyperkalemia Essential (primary) hypertension Diabetes mellitus, not otherwise specified (HCC) 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) Type 1 diabetes mellitus with other diabetic kidney complication (HCC) from Last 3 Months Results * Protein, Total, Urine (03/02/2025 6:45 PM EDT) Protein Urine Random <7 <12 mg/dL See order comments 03/02/2025 6:45 PM EDT 03/02/2025 6:45 PM EDT us Pito Mccormack MD LAB URINE ORDERABLES Final Re sult Performing Organization Address [facility] Co de Phone Number [place] See order comments [place] [address] * (ABNORMAL) PTH, Intact (03/02/2025 3:34 PM EDT) Parathyroid Hormone, Intact 119.3(H) 8.7 - 77.1 pg/mL See order comments 03/02/2025 3:3 4 PM EDT 03/02/2025 3:34 PM EDT us Pito Mccormack MD LAB BLOOD ORDERABLES Final Re sult Performing Organization Address [facility] de Phone Number [place] See order comments [place] [address] * Vitamin D 25 Hydroxy (03/02/2025 3:34 PM EDT) Vitamin D, 25-Hydroxy 47.8 >30 ng/mL See order comments Comment: Health Based Reference Values* < 20 ng/mL Deficient 20-30 ng/mL Insufficient > 30 ng/mL Sufficient *Farooq REDD. N Engl J Med. 2007;357:266-280 There is no well-established upper level of normal vitamin D levels. Some laboratories use 50 ng/mL as an upper limit of normal. However, toxicity is patient-dependent and may occur at any level. Careful correlation with the patient's presentation is necessary and, if there is concern for vitamin D toxicity, treatment should be considered irrespective of the serum level. Care must be taken in interpreting Vitamin D results from different laboratories and methodologies. Published data demonstrated that results from patients undergoing hemodialysis may show a negative bias when tested with various automated 25-OH vitamin D assays when compared to LC-MS/MS. When testing samples from patients whose predominant form of Vitamin D is Vitamin D2, such as patients receiving Vitamin D2 supplementation, results that are subtherapeutic should be confirmed with another method such as LC-MS/MS. Blood specimen (specimen) Venous blood / Unknown 03/02/2025 3:34 PM EDT 03/02/2025 3:34 PM EDT us Pito Mccormack MD LAB BLOOD ORDERABLES Final Re sult [place] See order comments [place] [address] * (ABNORMAL) CBC and Differential (03/02/2025 3:34 PM EDT) WBC 8.4 4.8 - 10.8 X10*3/uL See order comments RBC 3.78(L) 4.20 - 5.50 X10*6/uL See order comments Hgb 10.9(L) 12.0 - 16.0 g/dl See order comments Hematocrit 34.5(L) 37.0 - 47.0 % See order comments MCV 91.3 80.0 - 98.0 fL See order comments MCH 28.8 27.0 - 33.0 pg See order comments MCHC 31.6 31.0 - 35.0 g/dl See order comments RDW 13.1 11.0 - 16.0 % See order comments Platelets 254 160 - 400 X10*3/uL See order comments MPV 11.2 9.4 - 12.3 fL See order comments Neutrophils % Auto 77.5(H) 45 - 73 % See order comments Immature Granulocytes 0.2 0.0 - 0.4 % See order comments Lymphocytes Relative 8.4(L) 20 - 40 % See order comments Monocytes 7.6 2 - 11 % See order comments Eosinophils Relative 5.7(H) 0 - 4 % See order comments Basophils Relative 0.6 0 - 2 % See order comments nRBC Count 0.0 0.0 - 0.2 /100WBC See order comments Neutrophils Absolute 6.5 2.0 - 8.3 x10*3/uL See order comments Immature Grans (Absolute) 0.02 0.00 - 0.03 X10*3/uL See order comments Lymphocytes Absolute 0.7(L) 1.2 - 4.9 X10*3/uL See order comments Monocytes Absolute 0.6 0.1 - 1.2 X10*3/uL See order comments Eosinophils Absolute 0.5(H) 0.0 - 0.4 X10*3/uL See order comments Basophils Absolute 0.1 0.0 - 0.2 X10*3/uL See order comments NRBC Absolute 0.000 0.0 - 0.012 X10*3/uL See order comments Blood specimen (specimen) Venous blood / Unknown 03/02/2025 3:34 PM EDT 03/02/2025 3:34 PM EDT us Pito Mccormack MD LAB BLOOD ORDERABLES Final Re sult Performing Organization Address [facility] Phone Number [place] See order comments [place] [address] * (ABNORMAL) Uric Acid (03/02/2025 3:34 PM EDT) Uric Acid 9.9(H) 2.4 - 5.7 mg/dL See order comments Blood specimen (specimen) Venous blood / Unknown 03/02/2025 3:34 PM EDT 03/02/2025 3:34 PM EDT us Pito Mccormack MD LAB BLOOD ORDERABLES Final Re sult Performing Organization Address [facility] de Phone Number [place] See order comments [place] [address] * Phosphorus (03/02/2025 3:34 PM EDT) Phosphorus, Serum 4.5 2.7 - 4.5 mg/dL See order comments Blood specimen (specimen) Venous blood / Unknown 03/02/2025 3:34 PM EDT 03/02/2025 3:34 PM EDT us Pito Mccormack MD LAB BLOOD ORDERABLES Final Re sult Performing Organization Address [facility] Phone Number [place] See order comments [place] [address] * Magnesium (03/02/2025 3:34 PM EDT) Magnesium 2.1 1.6 - 2.6 mg/dL See order comments Blood specimen (specimen) Venous blood / Unknown 03/02/2025 3:34 PM EDT 03/02/2025 3:34 PM EDT us Pito Mccormack MD LAB BLOOD ORDERABLES Final Re sult [place] See order comments [place] [address] from Last 3 Months Insurance Comprehensive Benefits Care Teams Director Of Teenage Activities Relationship Specialty Start Date End Date Asa Bro MD [address] [place] [address] PCP - General Internal Medicine 11/21/20
--- OUTSIDE RECORDS SUMMARY | 2025-04-12 20:49 | XMS_ITS | Encounter Summary ---
Author Organization [facility] Address [address] [place] [address] Care Team Providers Care Home Supervisor Name Role Phone Asa Bro MD Primary Care Provider [phone] Reason for Visit * Reason Onset Date Comments Labs Only 04/02/2025 Encounter Details Date Type Department Care Team ([facility] st Contact Info) Description 04/02/2025 Telephone Adult Medicine [facility] [address] [place] [phone] Asa Bro MD [address] [place], [place] Social History Tobacco Use Types Packs/Day Years Used Date Smoking Tobacco: Former Cigarettes Smokeless Tobacco: Never Alcohol Use Standard Drinks/Week Comments Yes 1 [...] for your loved ones. For example, child and family counselor or elderly care for an older adult? [...] Date Recorded What is your living situation? Unrecognized valu e 08/11/2024 Comments No Sex and Gender Information Value Date Recorded Sex Assigned at Female 03/15/2024 1:38 PM EDT Legal Sex Female 3:27 AM EST Gender Identity Female 03/15/2024 1:38 PM EDT Sexual Orientation Not on file documented as of this encounter Progress Notes * Rosenda Alcala - 04/02/2025 11:13 AM EST Patient dropped off labs from [facility] documented in this encounter Plan of Treatment Upcoming Encounters Date Type Department Care Team (Late st Contact Info) Description 07/03/2025 10:00 AM EST Consult Adult Medicine [facility] [address] [place] [address] Asa Bro MD [address] [place] [address] documented as of this encounter Visit Diagnoses Not on filedocumented in this encounter Additional Health Concerns Assessment Noted Time PHQ-9 Depression Total Score: 0 02/23/20 25 4:20 PM EDT documented as of this encounter Care Teams Home Supervisor Relationship Specialty Start Date End Date Asa Bro MD [address] [place] [address] PCP - General Internal Medicine 03/15/20 documented as of this encounter
--- OUTSIDE RECORDS SUMMARY | 2025-04-12 20:49 | XMS_ITS | Encounter Summary ---
Author Organization [facility] Address [address] [facility] [address] [place] [address] Phone Care Team Providers Care Tumbler Dyeing Machine Operator Name Role Phone Asa Bro MD Primary Care Provider [phone] Reason for Visit * Reason Onset Date Comments Med Refill 05/18/2022 Encounter Details Date Type Department Care Team (Late st Contact Info) Description 05/18/2022 Refill [facility] [address] [facility] [address] [place] [address] Pito Mccormack MD [address] [facility] [address] [place] [address] Social History Tobacco Use Types Packs/Day Years [...] on file Sexual Orientation Not on file documented as of this encounter Plan of Treatment Upcoming Encounters Date Type Department Care Team (Late st Contact Info) Description 10/01/2025 10:40 AM EDT Office Visit [facility] [address] [facility] [address] [place] [address] Pito Mccormack MD [address] [facility] [address] [place] [address] documented as of this encounter Visit Diagnoses Not on filedocumented in this encounter Care Teams Tumbler Dyeing Machine Operator Relationship Specialty Start Date End Date Asa Bro MD [address] [place] [address] PCP - General Internal Medicine 11/21/20 documented as of this encounter
--- OUTSIDE RECORDS SUMMARY | 2025-04-12 20:49 | XMS_ITS | Encounter Summary ---
Author Organization [facility] Address [address] [place] [address] Care Team Providers Care Clark Driver Name Role Phone Asa Bro MD Primary Care Provider [phone] Reason for Visit * Reason Onset Date Comments Results 03/28/2025 Encounter Details Date Type Department Care Team ([facility] st Contact Info) Description 03/28/2025 Telephone Adult Medicine [facility] [address] [place] [phone] Asa Bro MD [address] [place], [place] Social History Tobacco Use Types Packs/Day [...] your loved ones. For example, child welfare specialist or elderly care for an older adult? [...] as of this encounter Progress Notes * Pauline Hidalgo - 03/28/2025 4:21 PM EST Patient is asking if Dr. Bro received her labs from [facility], she faxed them a couple of weeks ago to [phone]. documented in this encounter Plan of Treatment Upcoming Encounters Date Type Department Care Team (Late st Contact Info) Description 07/03/2025 10:00 AM EST Consult Adult Medicine [address] [phone] Asa Bro MD [address] [place] [address] documented as of this encounter Visit Diagnoses Not on filedocumented in this encounter Additional Health Concerns Assessment Noted Time PHQ-9 Depression Total Score: 0 02/23/20 25 4:20 PM EDT documented as of this encounter Care Teams Clark Driver Relationship Specialty Start Date End Date Asa Bro MD [address] [place] [address] PCP - General Internal Medicine 03/15/20 documented as of this encounter
--- OUTSIDE RECORDS SUMMARY | 2025-04-12 20:49 | XMS_ITS | Encounter Summary ---
Author Organization [facility] Address [address] [place] [address] Phone Care Team Providers Care City Clerk Name Role Phone Asa Bro MD Primary Care Provider [phone] Encounter Details Date Type Department Care Team (Late st Contact Info) Description 11/21/2020 Orders Only [facility] [address] [place] [address] Provider, MD Nish Social History Tobacco Use Types Packs/Day Years [...] on file Sexual Orientation Not on file COVID-19 Exposure Response Date Recorded In the last month, have you been in contact with someone who was confirmed or suspected to have Coronavirus / COVID-19? No / Unsure 11/21/2020 10:29 AM EDT documented as of this encounter Functional Status * Question Answer Date of Assessment Author BP 122/50 11/21/2020 10:38 AM EDT Cond e, Shannan Pulse 68 11/21/2020 10:38 AM EDT Cond e, Shannan SpO2 100 11/21/2020 10:38 AM EDT Cond e, Shannan Weight 3152 11/21/2020 10:38 AM EDT Cond e, Shannan * BP Location Answer Date of Assessment Author Left upper arm 11/21/2020 10:38 AM EDT Dooley, A jasiel * Question Answer Date of Assessment Author BP 122/50 11/21/2020 10:38 AM EDT Shannan Chadnra Weight 3152 11/21/2020 10:38 AM EDT Shannan Chandra * BP Location Answer Date of Assessment Author Left upper arm 11/21/2020 10:38 AM EDT Ray Dooley jasiel documented as of this encounter Plan of Treatment Upcoming Encounters Date Type Department Care Team (Late st Contact Info) Description 10/01/2025 10:40 AM EDT Office Visit [facility] [address] [address] Pito Mccormack MD [address] [address] documented as of this encounter Procedures Procedure Name Priority Date/Time Associated Diagnosis Comments EXT RESULT ENTRY Routine 11/18/2020 documented in this encounter Results * EXT RESULT ENTRY (11/18/2020) us Historical Provider LAB BLOOD ORDERABLES Li l Result documented in this encounter Visit Diagnoses Not on filedocumented in this encounter Care Teams City Clerk Relationship Specialty Start Date End Date Asa Bro MD [address] [place] [address] PCP - General Internal Medicine 11/21/20 documented as of this encounter
--- OUTSIDE RECORDS SUMMARY | 2025-04-12 20:49 | XMS_ITS | Clinical Summary ---
Author Organization [facility] Address [address] [facility] [address] [place] [address] Phone Care Team Providers Care Food Demonstrator Name Role Phone Unavailable Primary Care Provider Unavailabl e Social History Tobacco Use Types Packs/Day Years Used Date Smoking Tobacco: Never Assessed Education Answer Date Recorded Are you interested in more education? Not on santa e 09/19/2022 Are you concerned about learning? Not on file 09/19/2022 No 09/19/2022 No 09/19/2022 Digital Access Answer Date Recorded No 10/20/2022 No 10/20/2022 Reliable internet access at home? Not on file 10/20/2022 Device with a working camera? Not on file Comments Unknown Sex and Gender Information Value Date Recorded Sex Assigned at Not on file Legal Sex Female 8:40 AM EST Gender Identity Not on file Sexual Orientation Not on file Plan of Treatment Not on file Medical Devices Not on file Additional Source Comments The information contained in this document represents components of the legal health record. It is not the complete legal health record.[facility]
--- OUTSIDE RECORDS SUMMARY | 2025-04-12 20:49 | XMS_ITS ---
Author Name [facility] Organization Unknown Care Team Organization Name Specialty Phone Email Start Date End Da breann [facility] THAO Primary Care 07/29/2022 01/10/2024 [facility] LEO ORELLANA Primary Care 03/31/2022 4
--- OUTSIDE RECORDS SUMMARY | 2025-04-12 20:49 | XMS_ITS | Clinical Summary ---
Author Organization [facility] [address] [place] [address] [place] [phone] Phone Care Team Providers Care Glass Cutter Hand Name Role Phone Asa Bro MD Primary Care Provider [phone] Allergies Active Allergy Reactions Criticality Noted Date Comments Amoxicillin Trihydrate 03/25/2005 Rash, does not recall if itchy More than ten years ago Penicillin G Potassium 03/25/2005 Medications cetirizine (ZyrTEC) 10 mg tablet Take by mouth. - Oral Active estradioL (ESTRACE) 0.01 % (0.1 mg/gram) vaginal cream Apply 0.5 g nightly for two weeks, then MWF 12/09/19 24 Active hydrALAZINE (APRESOLINE) 50 mg tablet Take 1 tablet (50 mg total) by mouth 4 (four) times a day. Per Open Tenter Operator 04/12/20 23 Active spironolactone (ALDACTONE) 25 mg tablet Take 1 Tablet by mouth every morning. 03/09/20 22 Active atorvastatin (LIPITOR) 20 mg tablet Take 1 tablet (20 mg total) by mouth 1 (one) time each day. 90 tablet 2 08/15/19 25 Active furosemide (LASIX) 20 mg tablet Take 1 tablet (20 mg total) by mouth 1 (one) time each day. 90 tablet 2 08/15/19 25 Active nystatin-triamcin olone (MYCOLOG II) ointment APPLY A THIN LAYER TO AFFECTED AREA wtice weekly 30 g 2 10/27/19 25 Active dilTIAZem CD (CARDIZEM CD) 180 mg 24 hr capsule Take 1 capsule (180 mg total) by mouth 1 (one) time each day. 90 capsule 1 12/26/19 25 Active levothyroxine (SYNTHROID, LEVOTHROID) 75 mcg tablet Take 1 tablet (75 mcg total) by mouth 1 (one) time each day. 90 tablet 1 12/26/19 25 Active olmesartan (BENICAR) 40 mg tablet TAKE ONE (1) TABLET BY MOUTH EVERY DAY AT BEDTIME 90 tablet 1 03/06/20 25 Active blood sugar diagnostic (Contour Next Test Strips) test stripIndications: Type 1 diabetes mellitus without complications (CMS/HCC V24, CMS/HCC V28) USE TO TEST BLOOD SUGARS 5 TIMES DAILY 450 strip 1 03/07/20 25 Active insulin lispro (HumaLOG KwikPen Insulin) 100 unit/mL injection penIndications:Ty pe 1 diabetes mellitus with cataract (CMS/HCC V24, CMS/HCC V28) INJECT SUBCUTANEOUSLY 3 TIMES DAILY as directed, max dose of 40 units a day 45 mL 3 03/08/20 25 Active insulin glargine (Lantus Solostar U-100 Insulin) 100 unit/mL (3 mL) injection penIndications:Ty pe 1 diabetes mellitus with cataract (CMS/HCC V24, CMS/HCC V28) Inject 26 Units under the skin at bedtime. 30 mL 3 03/08/20 25 Active blood-glucose sensor (Dexcom G7 Sensor) deviceIndications :Type 1 diabetes mellitus with cataract (CMS/HCC V24, CMS/HCC V28) Box = Kit = EA, change sensors every 10 days 9 kit 3 03/08/20 25 Active pen needle, diabetic (BD Ultra-Fine Fidelina Pen Needle) 32 gauge x 5/32 needleIndications :Type 1 diabetes mellitus with cataract (CMS/HCC V24, CMS/HCC V28) INJECT SUBCUTANEOUSLY 4 TIMES DAILY 400 each 2 03/12/20 25 Active Active Problems Problem Noted Date Diagnosed [...] Severe obesity (BMI 35.0-39. 9) with comorbidity ([facility] V24, [facility] V28) 06/22/2019 Diabetic retinopathy ([facility] V24, [facility] V28) 06/02/2016 Type 1 diabetes mellitus wit h cataract ([facility] V24, [facility] V28) 06/02/2016 CKD stage 2 due to type 1 di abetes mellitus ([facility] V24, [facility] V28) 05/26/2016 Hyperlipidemia 12/31/2015 Ankle fracture, left 02/21/2015 Overview (03/17/2024): 11/23/2014 Microalbuminuria 07/29/2012 Type I (juvenile type) diabe alexander mellitus with renal manifestations, uncontrolled(250.43) ([facility] V24, [facility] V28) 07/29/2012 Overview (03/17/2024): Onset age 4 Essential hypertension, benign 03/25/2005 Cataract 03/25/2005 Hypothyroidism 03/25/2005 Encounters Date Type Department Care Team Description 04/02/2025 Telephone Adult Medicine [address] [phone] Asa Bro MD 03/28/2025 Telephone Adult Medicine [address] [phone] Asa Bro MD 03/08/2025 11:30 AM EDT Office Visit Endocrinology [address] [phone] Trinity Sutherland MD Type 1 diabetes mellitus with cataract ([facility] V24, [facility] V28) (Primary Dx) 03/02/2025 Telephone Adult Medicine [address] [phone] Asa Bro MD 02/22/2025 3:45 PM EDT Office Visit Adult Medicine [address] [phone] Asa Bro MD Type I (juvenile type) diabetes mellitus with renal manifestations, uncontrolled(250.43) ([facility] V24, [facility] V28) (Primary Dx); Essential hypertension, benign; CKD stage 3b, GFR 30-44 ml/min ([facility] V24, [facility] V28); Pure hypercholesterolemia; Hypothyroidism, unspecified type; Encounter for long-term (current) use of medications; Need for prophylactic vaccination and inoculation against influenza from Last 3 Months Immunizations Immunization Administration Dates Next Due Influenza Quadravalent, MDCK , 0.5ml, preservative free (Flucelvax) 6mo and older 03/21/2018 Influenza Quadravalent, MDCK , 0.5ml, with preservative (Flucelvax) 6mo and older 04/05/2017 Influenza trivalent, 0.5mL ( Fluad) 65yo and older 02/22/2025 Influenza trivalent, 0.5mL, preservative free (Fluarix; FluLaval; [...] 1 diabetes mellitus wit h eye manifestations ([facility] V24, [facility] V28) 06/02/2016 Type 1 diabetes mellitus wit h cataract ([facility] V24, [facility] V28) 06/02/2016 Tibia/fibula fracture 08/07/2019 : Right an kle and knee 07/13 Hypothyroidism 03/25/2005 Perennial allergic rhinitis 07/30/2020 Recurrent UTI 12/09/2023 Family History Medical History Relation Name Comments Breast cancer Aunt 1 maternal RI Breast cancer Aunt 2 paternal Diabetes Brother [...] do you feel lonely or isolated from ose around you? Rarely 08/11/2024 Food Risk [...] for your loved ones. For example, child support investigator or elderly care for an older adult? [...] Sign Reading Time Taken Comments Blood Pressure 122/80 03/08/2025 11:29 AM EDT Pulse 82 03/08/2025 11:29 AM EDT Temperature 36.4 C (97.6 F) 03/08/2025 11:29 AM EDT Respiratory Rate 14 03/08/2025 11:29 AM EDT Oxygen Saturation 98% 02/22/2025 3:52 PM EDT Inhaled Oxygen Concentration - - Weight 94.3 kg (208 lb) 03/08/2025 11:29 AM EDT Height 160 cm (5' 3 ) 02/22/2025 3:52 PM EDT Body Mass Index 36.85 02/22/2025 3:52 PM EDT Plan of Treatment Upcoming Encounters Date Type Department Care Team (Late st Contact Info) Description 07/03/2025 10:00 AM EST Consult Adult Medicine [facility] [address] [place] [phone] Asa Bro MD [address] [place] [address] Health Maintenance Due Date Last Done Comments Zoster Vaccines (1 of 2) 1978 Pneumococcal Vaccine: 50+ Years (2 of 2 - PCV) 03/01/2002 03/01/2001 RSV Immunization Adult Patients (1 - Risk 50-74 years 1-dose series) 2009 Colorectal Cancer Screening: Stool Based Tests (FOBT/FIT) 10/23/2019 Osteoporosis Screening (Bone Density Screening) 10/23/2019 Diabetes: Annual Foot Exam 07/07/2024 07/07/2023 Diabetes: Annual Urine Albumin-Creatinine Ratio (uACR) 11/01/2024 11/02/2023 COVID-19 Vaccine ( season) 2025 06/19/2023, 06/01/2021, 11/28/2020, Additional history exists Breast Cancer Screening 02/13/2025 02/14/20, 01/04/2021, 07/08/2018, Additional history exists Diabetes: Blood Sugar Control Test (HGBA1C) 02/16/2025 08/16/2024, 11/02/2023, 11/02/2023 Diabetes: Annual GFR (Glomerular Filtration Rate) 07/03/2025 07/03/2024, 07/03/2024, 07/03/2024, Additional history exists Hypertension/CHF/CAD Annual BMP Blood Test 07/03/2025 07/03/2024, 07/03/2024, 07/03/2024, Additional history exists Social Influencers of Health Screening 08/11/2025 08/11/2024 Falls Risk Assessment 08/14/2025 08/14/2024 Diabetes: Annual Retina Eye Exam 03/29/2026 03/29/2025, 01/26/2025, 10/18/2024, Additional history exists Cervical Cancer Screening: HPV 11/28/2026 11/28/2021 Cholesterol Screening (Lipid Panel) 08/16/2029 08/16/2024, 02/14/2024, 02/14/2024 DTaP,Tdap,and Td Vaccines (4 - Td or Tdap) 01/27/2030 01/28/2020, 03/19/2009, 04/23/1997 Hepatitis C Screening Completed 05/03/2013 Depression Screening Completed 02/22/2025 Influenza Vaccine Completed 02/22/2025, , 03/09/2019, Additional history exists HIB Vaccines Aged Out No longer eligi [...] Diagnosis Comments EXTERNAL DIABETIC RETINA EYE EXAM 03/29/2025 EXTERNAL DIABETIC RETINA EYE EXAM 01/26/2025 HEMOGLOBIN A1C Routine 08/16/2024 4:48 PM EDT Type I (juvenile type) diabetes mellitus with renal manifestations, uncontrolled(250.43) ([facility] V24, [facility] V28) LIPID PANEL WITH REFLEX TO DIRECT LDL Routine 08/16/2024 4:48 PM EDT Pure hypercholesterolemia COMPREHENSIVE METABOLIC PANEL Routine 07/03/2024 11:25 AM EST Chronic kidney disease (CKD) stage G3b/A1, moderately decreased glomerular filtration rate (GFR) between 30-44 mL/min/1.73 square meter and albuminuria creatinine ratio les* ([facility] V24, [facility] V28) Severely overweight Localized edema Hyposmolality syndrome Primary hypertension Diabetes mellitus ([facility] V24, [facility] V28) URINE ALBUMIN CREATININE RATIO Routine 11/02/2023 DIABETES FOOT EXAM Routine 07/07/2023 SCREENING MAMMOGRAPHY BI 2-VIEW BREAST INC CAD Routine 02/13/2023 10:49 AM EDT Encounter for screening mammogram for malignant neoplasm of breast HPV Routine 11/28/2021 HEPATITIS C SCREENING Routine 05/03/2013 from Last 3 Months or Most Recently Relevant to Health Maintenance Results * External Diabetic Retina Eye Exam Report (03/29/2025) Only the most recent of2 resultswithin the time period is included. Anatomical Region Laterality Modality Ultrasound us Provider [employer] [facility] [place] [place] US PROCEDURES Final Result * Lipid panel with reflex to direct LDL (08/16/2024 4:48 PM EDT) Cholesterol 158 0 - 200 mg/dL LAB CHEMISTRY METHOD 08/16/2024 7:36 PM EDT [facility] Triglycerides 87 0 - 150 mg/dL LAB CHEMISTRY METHOD 08/16/2024 7:36 PM EDT [facility] HDL 89 >=40 mg/dL LAB CHEMISTRY METHOD 08/16/2024 7:36 PM EDT [facility] LDL Calculated 52 0 - 100 mg/dL LAB CHEMISTRY METHOD 08/16/2024 7:36 PM EDT [facility] VLDL Cholesterol Pascual 17.4 mg/dL LAB CHEMISTRY METHOD 08/16/2024 7:36 PM EDT [facility] Non HDL Chol. (LDL+VLDL) 69 <145 mg/dL LAB CHEMISTRY METHOD 08/16/2024 7:36 PM EDT [facility] Chol/HDL Ratio 1.8 0.0 - 4.4 LAB CHEMISTRY METHOD 08/16/2024 7:36 PM EDT [facility] Blood Venous blood specimen / Unknown Venipuncture / Unknown 08/16/2024 4:48 PM EDT 08/16/2024 4:48 PM EDT us Asa Bro MD LAB BLOOD ORDERABLES Final Resu lt [facility] [address] [place] [address], [place] [phone] * (ABNORMAL) Hemoglobin A1c (08/16/2024 4:48 PM EDT) Hemoglobin A1C 7.0(H) <6.5 % LAB CHEMISTRY METHOD 08/17/2024 1:56 PM EDT [facility] Mean Bld Glu Estim. 154 mg/dL LAB CHEMISTRY METHOD 08/17/2024 1:56 PM EDT [facility] Blood Venous blood specimen / Unknown Venipuncture / Unknown 08/16/2024 4:48 PM EDT 08/16/2024 4:48 PM EDT us Asa Bro MD LAB BLOOD ORDERABLES Final Resu lt [facility] [address] [place] [address], * (ABNORMAL) Comprehensive metabolic panel (07/03/2024 11:25 AM EST) Sodium 138 133 - 145 mmol/L LAB CHEMISTRY METHOD 07/03/2024 4:21 PM EST [facility] Potassium 4.9 3.5 - 5.5 mmol/L LAB CHEMISTRY METHOD 07/03/2024 4:21 PM [facility] Chloride 107 96 - 110 mmol/L LAB CHEMISTRY METHOD 07/03/2024 4:21 PM [facility] CO2 22 21 - 32 mmol/L LAB CHEMISTRY METHOD 07/03/2024 4:21 PM [facility] Anion Gap 9 3 - 11 LAB CHEMISTRY METHOD 07/03/2024 4:21 PM [facility] Glucose 185(H) 70 - 100 mg/dL LAB CHEMISTRY METHOD 07/03/2024 4:21 PM [facility] BUN 32(H) 5 - 25 mg/dL LAB CHEMISTRY METHOD 07/03/2024 4:21 PM [facility] Creatinine 1.62(H) 0.50 - 1.10 mg/dL LAB CHEMISTRY METHOD 07/03/2024 4:21 PM [facility] eGFR 35(L) >=60 mL/min/1. 73m2 LAB CHEMISTRY METHOD 07/03/2024 4:21 PM [facility] Comment:Calculation based on the Chronic Kidney Disease Epidemiology Collaboration (CKD-EPI) equation refit without adjustment for race. BUN/Creatinine Ratio 19.8 LAB CHEMISTRY METHOD 07/03/2024 4:21 PM [facility] Calcium 9.9 8.5 - 10.5 mg/dL LAB CHEMISTRY METHOD 07/03/2024 4:21 PM [facility] AST (SGOT) 12 10 - 42 unit/L LAB CHEMISTRY METHOD 07/03/2024 4:21 PM [facility] ALT (SGPT) 20 10 - 60 unit/L LAB CHEMISTRY METHOD 07/03/2024 4:21 PM [facility] Alkaline Phosphatase 133(H) 42 - 121 unit/L LAB CHEMISTRY METHOD 07/03/2024 4:21 PM [facility] Total Protein 7.1 6.0 - 8.0 g/dL LAB CHEMISTRY METHOD 07/03/2024 4:21 PM [facility] Albumin 4.2 3.2 - 5.0 g/dL LAB CHEMISTRY METHOD 07/03/2024 4:21 PM [facility] Total Bilirubin 1.0 0.0 - 1.4 mg/dL LAB CHEMISTRY METHOD 07/03/2024 4:21 PM [facility] Blood Venous blood specimen / Unknown Venipuncture / Unknown 07/03/2024 11:25 AM EST 07/03/2024 11:25 AM EST Pito Mccormack MD LAB BLOOD ORDERABLES Final Result [facility] [address] [place] [address], * Urine Albumin Creatinine Ratio (11/02/2023) Urine Albumin Creatinine Ratio Abstracted Historical Provider HEALTH MAINTENANCE Final Result * Diabetes Foot Exam (07/07/2023) Pathologist [facility] Diabetes: Annual Foot Exam Abstracted [...] Result * Cervical Cancer Screening: HPV (11/28/2021) Cervical Cancer Screening: HPV Negative, Abstracted Historical Jacoby JIM HEALTH MAINTENANCE Final Result * Hepatitis C Screening (05/03/2013) Hepatitis C Screening Abstracted Historical Jacoby JIM HEALTH MAINTENANCE Final Result from Last 3 Months or Most Recently Relevant to Health Maintenance Insurance MEDICARE [facility] Care Teams Glass Cutter Hand Relationship Specialty Start Date End Date Asa Bro MD [address] [place] [phone] PCP - General Internal Medicine 03/15/20
== END 2025-04-12 16:31 | disposition home or self-care (01) ==
LOC: HO.HMCHD 15:54
PROVIDERS: PCP Student in an Organized Health Care Education/Training Program; Visit Provider Student in an Organized Health Care Education/Training Program
DX: Z00.00 Encounter for general adult medical examination without abnormal findings (principal); I12.9 Hypertensive chronic kidney disease with stage 1 through stage 4 chronic kidney disease, or unspecified chronic kidney disease; E11.22 Type 2 diabetes mellitus with diabetic chronic kidney disease; N18.4 Chronic kidney disease, stage 4 (severe); Z79.4 Long term (current) use of insulin; E78.5 Hyperlipidemia, unspecified; E03.8 Other specified hypothyroidism; D63.1 Anemia in chronic kidney disease

== ENCOUNTER → 2025-04-12 15:53 | Outpatient (BNVA) | payer OTHER, SELFPAY | PROVIDERS: PCP Student in an Organized Health Care Education/Training Program; Visit Provider Student in an Organized Health Care Education/Training Program | DX: Z13.31 Encounter for screening for depression (principal); Z13.39 Encounter for screening examination for other mental health and behavioral disorders | CPT/HCPCS: 96127 ==